=== PATIENT | female | born 1990 | race Caucasian/White ===

== ENCOUNTER 2021-06-14 18:17 | Emergency (ER) | payer OTHER, SELFPAY ==
[2021-06-14 19:16] VITALS: BP 176/104; PULSE 114; RESP 20; TEMP 36.4; O2SAT 99
[2021-06-14 19:32] LABS: Basophils Percent Auto 0.2 % (0.2-1.2); Eosinophils Percent Auto 0.3 % (0-4.4); Hematocrit 40.9 % (37.0-47.0); Hemoglobin 13.8 g/dL (12.0-15.0); Immature Granulocyte Absolute 0.04 K/mm3 (0.00-0.031); Immature Granulocyte Percent A 0.4 % (0-0.5); Lymphocytes Absolute Auto 1.21 K/mm3 (0.9-3.2); Lymphocytes Percent Auto 11.5 % (18.3-44.2); Mean Corpuscular HGB Conc 33.7 g/dl (32-36); Mean Corpuscular Hemoglobin 30.1 pg (26-34); Mean Corpuscular Volume 89.3 fl (80-100); Mean Platelet Volume 9.5 fl (7.4-10.4); Monocytes Absolute Auto 0.4 K/mm3 (0.1-0.6); Neutrophils Absolute Auto 8.8 K/mm3 (1.3-6.7); Neutrophils Percent Auto 83.6 % (45.5-73.1); Platelet Count Result 240 k/mm3 (150-375); Red Blood Count 4.58 M/mm3 (4.2-5.4); Red Cell Distribution Width 13.1 % (11.5-14.5); White Blood Count 10.5 K/mm3 (4.5-10.0)
[2021-06-14 19:42] LABS: Alanine Aminotransferase 24 U/L (4-35); Albumin Level 3.9 g/dL (3.5-5.1); Alkaline Phosphatase 63 U/L (38-126); Anion Gap 10 mmol/L (8-16); Aspartate Amino Transferase 21 U/L (14-36); Bilirubin,Total 0.3 mg/dL (0.2-1.3); Blood Urea Nitrogen 9 mg/dL (7-17); Calcium 9.7 mg/dL (8.4-10.2); Carbon Dioxide 20 mmol/L (22-30); Chloride 107 mmol/L (98-107); Estimated CRCL calculation 212 ml/min; Estimated Glomerular Filt Rate > 60; Glucose 115 mg/dL (65-110); Lipase 38 U/L (23-300); Sodium 137 mmol/L (137-145)
[2021-06-14 20:19] LABS: Add Urine Microscopic? YES; Appearance Urine Clear (Clear); Bilirubin Urine Negative (Negative); Blood Urine Negative (Negative); Color Urine Yellow (Yellow); Glucose Urine UA Negative (Negative); Ketones Urine 1+ mg/dL (Negative); Leukocyte Esterase Ur Negative LEU/UL (Negative); Mucus Urine Few /lpf; Nitrate Urine Negative (Negative); Protein Urine 1+ mg/dL (Negative); RBC Urine 0-2 /hpf (0-2); Specific Grav Ur 1.028 (1.001-1.035); Squamous Epithelial Cell Urine Few /hpf (Few); WBC Urine 0-3 /hpf
[2021-06-14] MEDS: ACETAMINOPHEN 500 MG TABLET 1000 MG PO (21:39)
[2021-06-14 21:44] VITALS: BP 141/94; PULSE 95; RESP 18; O2SAT 97
[2021-06-14] MEDS: DICYCLOMINE HCL INJ 20 MG/2 ML VIAL IM (22:06)
--- NOTE | 2021-06-14 22:07 | ED.ABDPAIN ---
HPI - Abdominal Pain General Chief Complaint: Abdominal Pain Stated Complaint: Stomach hurts after starting metformin, 10wks preg Time Seen by Provider: 06/14/21 19:53 History of Present Illness HPI narrative: Patient is a 31-year-old female who presents to the ER with abdominal cramping. Recently started Metformin and insulin for diabetes. She is currently 9 weeks . She is seeing the high risk clinic due to her diabetes. She has no vaginal bleeding or leakage of fluid. No urinary frequency urgency or dysuria. Has not had similar symptoms previously. She has had an ultrasound for documentation of IUP. Related Data Home Medications Medication Instructions Recorded Confirmed insulin NPH isoph U-100 human unit SUBCUT 06/14/21 [Humulin N NPH Insulin KwikPen] metformin mg PO 06/14/21 Allergies Allergy/AdvReac Type Severity Reaction Status Date / Time Sulfa (Sulfonamide AdvReac Hives Verified 06/14/21 19:51 Antibiotics) Review of Systems Review of Systems: All systems reviewed & are unremarkable except as noted in HPI and below Constitutional: Constitutional: Denies chills, Denies fever(s) and Denies weakness ENT: Denies nasal congestion and Denies sore throat Gastrointestinal: Gastrointestinal: Reports abdominal pain, Denies diarrhea, Denies nausea and Denies vomiting Genitourinary: Genitourinary: Denies abnormal vaginal bleeding, Denies hematuria, Denies flank pain and Denies vaginal discharge Musculoskeletal: Musculoskeletal: Denies back pain and Denies muscle cramps PMFSH Past Medical History Medical History (Updated 06/14/21 @ 22:11 by Madhu Bryant MD) Anxiety Diabetes Surgical History Surgical History (Updated 06/14/21 @ 22:08 by Madhu Bryant MD) No pertinent past surgical history Exam Narrative: GENERAL: Well-appearing, well-nourished, and in no acute distress. HEAD: Normocephalic, atraumatic. EYES: PERRL and EOMI. CHEST: Clear to auscultation. No respiratory distress. HEART: Regular rate and rhythm. Normal peripheral pulses. ABDOMEN: Soft, nontender, nondistended. EXTREMITIES: Normal range of motion. No edema. SKIN: Warm, dry, no rash. NEURO: Alert and oriented x3. PSYCH: Normal mood and affect. Course Course Emergency Course: Patient resting comfortably. Informed results. Discharge home. Vital Signs Vital signs: Vital Signs Temperature 97.6 F 06/14/21 19:16 Pulse Rate 114 H 06/14/21 19:16 Respiratory Rate 20 06/14/21 19:16 Blood Pressure 176/104 H 06/14/21 19:16 Pulse Oximetry 99 06/14/21 19:16 Temperature 97.6 F 06/14/21 19:16 Pulse Rate 95 06/14/21 21:44 Respiratory Rate 18 06/14/21 21:44 Blood Pressure 141/94 H 06/14/21 21:44 Pulse Oximetry 97 06/14/21 21:44 MDM - Abdominal Pain Lab Data Result diagrams: 06/14/21 19:26 06/14/21 19:26 Labs: Lab Results 06/14/21 06/14/21 06/14/21 Range/Units 19:25 19:26 19:26 WBC 10.5 H (4.5-10.0) K/mm3 RBC 4.58 (4.2-5.4) M/mm3 Hgb 13.8 (12.0-15.0) g/dL Hct 40.9 (37.0-47.0) % MCV 89.3 (80-100) fl MCH 30.1 (26-34) pg MCHC 33.7 (32-36) g/dl RDW 13.1 (11.5-14.5) % Plt Count 240 (150-375) k/mm3 MPV 9.5 (7.4-10.4) fl Immature Gran % (Auto) 0.4 (0-0.5) % Neut % (Auto) 83.6 H (45.5-73.1) % Lymph % (Auto) 11.5 L (18.3-44.2) % [place] % (Auto) 4.0 (2.6-8.5) % Eos % (Auto) 0.3 (0-4.4) % Baso % (Auto) 0.2 (0.2-1.2) % Lymph # (Auto) 1.21 (0.9-3.2) K/mm3 [place] # (Auto) 0.4 (0.1-0.6) K/mm3 Eos # (Auto) 0.0 (0-0.3) K/mm3 Baso # (Auto) 0.0 (0.0-0.1) K/mm3 Abs Immat Gran (auto) 0.04 H (0.00-0.031) K/mm3 Absolute Neuts (auto) 8.8 H (1.3-6.7) K/mm3 Absolute Nucleated RBC 0.0 (0.0-0.012) K/mm3 Nucleated RBC % 0.0 (0.0-0.2) % Sodium 137 (137-145) mmol/L Potassium 4.0 (3.4-5.0) mmol/L Chloride 107 (98-107) mmol/L Carbon D
[2021-06-14 22:26] VITALS: BP 154/85; PULSE 98; RESP 18; O2SAT 98
== END 2021-06-14 22:23 | disposition home or self-care (01) ==
PROVIDERS: Emergency Medicine; Emergency Provider Emergency Medicine; PCP Obstetrics & Gynecology
DX: O26.891 Other specified pregnancy related conditions, first trimester (principal); R14.0 Abdominal distension (gaseous); R10.9 Unspecified abdominal pain; O24.911 Unspecified diabetes mellitus in pregnancy, first trimester; Z79.4 Long term (current) use of insulin; Z3A.09 9 weeks gestation of pregnancy
CPT/HCPCS: 36415; 80053; 81001; 81025; 83690; 84702; 85025; 96372; 99283; A9270; J0500

== ENCOUNTER 2022-01-02 09:13 | Outpatient (RCR) | payer OTHER, SELFPAY ==
[2021-11-28 10:32] VITALS: BP 137/75; PULSE 97
[2021-12-05 09:51] VITALS: BP 139/80; PULSE 101
[2021-12-09 11:37] VITALS: BP 148/83; PULSE 100
[2021-12-12 10:00] VITALS: BP 132/72; PULSE 109
[2021-12-21 13:13] VITALS: BP 141/93; PULSE 110
[2021-12-26 09:48] VITALS: BP 129/73; PULSE 104
[2021-12-30 12:29] VITALS: BP 139/80; PULSE 101
--- NOTE | ~2022-01-02 | US_ITS ---
EXAMINATION: US OB follow up w [facility] DATE: 11/28/2021 11:53 INDICATION: Gestational diabetes. Evaluate growth. TECHNIQUE: Real-time ultrasound of the pelvis was performed. The interpreting radiologist was not pre sent for the study. COMPARISON: None. FINDINGS: There is a single living fetus in breech presentation. The placenta is anterior/fundal. cardia c activity and movement are noted. heart rate is 163 beats per minute (bpm). The amniotic fluid index is 11.2 cm, which is normal. The following biometric data were obtained: BPD: 80 cm corresponds to gestational age 32 weeks 0 day(s). Head circumference: 302 cm corresponds to gestational age 33 weeks 4 day(s). Abdominal circumference: 337 cm corresponds to gestational age 36 weeks 4 day(s). Femur length: 65 cm corresponds to gestational age 33 weeks 3 day(s). Head circumference to abdominal circumference ratio: 0.93, normal for gestational age is 0.95-1.11 Estimated weight: 2547 g plus or minus 382 g, 95.2 percentile by Hadlock method. Biophysical profile performed by the technologist: breathing (30 sec sustained breathing in 30 minutes): 2 out of 2 movement (3 gross body movements in 30 minutes: 2 out of 2 tone (one episode of cblyytz-qgivcvzpi-lidnvuy limb movement): 2 out of 2 Amniotic fluid pocket (2 cm): 2 out of 2 Total score: 8 out of 8 IMPRESSION: 1. Single living fetus in breech presentation with heart rate of 163 bpm. 2. Normal placenta. 3. Biophysical profile 8 out of 8. 4. Gestational age by ultrasound of 33 weeks 6 day(s) with ultrasound estimated date of delivery (SARAH ) of 01/10/2022. Please correlate with clinical information or other ultrasounds for most accurate SARAH . Reviewed, dictated and finalized at location A. [facility] IMPRESSION: 1. Single living fetus in breech presentation with heart rate of 163 bpm. 2. Normal placenta. 3. Biophysical profile 8 out of 8. 4. Gestational age by ultrasound of 33 weeks 6 day(s) with ultrasound estimated date of delivery (SARAH) of 01/10/2022. Please correlate with clinical informatio n or other ultrasounds for most accurate SARAH.
[2022-01-02 09:53] VITALS: BP 136/87; PULSE 98
== END 2022-01-26 10:45 | disposition home or self-care (01) ==
LOC: ANHOBOP 09:13
PROVIDERS: PCP Obstetrics & Gynecology; Visit Provider Obstetrics & Gynecology
DX: O24.419 Gestational diabetes mellitus in pregnancy, unspecified control (principal); O26.893 Other specified pregnancy related conditions, third trimester; R03.0 Elevated blood-pressure reading, without diagnosis of hypertension; Z3A.32 32 weeks gestation of pregnancy; Z3A.33 33 weeks gestation of pregnancy; O16.3 Unspecified maternal hypertension, third trimester; Z3A.34 34 weeks gestation of pregnancy; Z3A.36 36 weeks gestation of pregnancy; Z3A.37 37 weeks gestation of pregnancy
CPT/HCPCS: 59025; 76816; 76819

== ENCOUNTER 2022-01-06 10:04 | Inpatient (IN) | payer OTHER, SELFPAY ==
[2022-01-06] VITALS (73 sets, daily range): BP systolic 89–162; BP diastolic 46–107; PULSE 70–108; RESP 18–22; TEMP 36.8–37.4; O2SAT 96–100; BMI 49.3
--- OUTSIDE RECORDS SUMMARY | 2022-01-06 10:17 | XMS_ITS ---
:1990 Author Care Team Providers Name Role Phone LEVI KENNEDY MD English Teacher [phone] Allergies Code Code System Name Reaction Severity Status Onset Sulfa Hives Mild to Active ? (Sulfonamid Moderate e Antibiotics ) Medications Name Status Start Date Stop Date ? ? acetaminophen 300 mg-codeine 30 mg tablet Completed ? 03/31/2021 amoxicillin 500 mg capsule Completed ? 03/31 amoxicillin 875 mg-potassium clavulanate Completed ? 03/31/2021 125 mg tablet aspirin 81 mg tablet,delayed release Completed ? 01/10/2018 azithromycin 250 mg tablet Completed ? 03/31 benzonatate 100 mg capsule Completed ? 10/11 lkkboraepn-dplrtnuuxhfoe-gyscccry 50 Completed ? 03/31/2021 mg-325 mg-40 mg tablet Calcium 600 with Vitamin D3 600 mg-10 mcg (400 unit) capsule Com pleted ? 01/10/2018 Take 1 capsule twice a day by oral route. calcium carbonate 600 mg-vitamin D3 20 mcg (800 unit) tablet Com pleted ? 03/31/2021 Take 1 tablet twice a day by oral route. cephalexin 500 mg capsule Completed ? 2016 cetirizine 10 mg tablet Completed ? 03/31/20 21 TK 1 T PO D cholecalciferol (vitamin D3) 10 mcg/mL Completed ? 03/31/2021 (400 unit/mL) oral drops cimetidine 800 mg tablet Completed ? 017 Take 1 tablet every day by oral route. ciprofloxacin 500 mg tablet Completed ?
--- NOTE | 2022-01-06 11:50 | LDADM ---
This patient, Paz Fernandez, was admitted to OB Post 116 on 01/06/22 at 10:04. Plans for surgery/ and, pain management were discussed with patient. Patient/family oriented to hospital policies and general routines including ID bracelet, bed and alarms, visiting hours, pain management, procedures, bathroom and other care routines, personal items, smoking policy, room service/diet and guest tray routines, infant security routines, and visiting hours. Patient/Family are encouraged to report perceived risks to care and to ask questions if they do not understand what they are told or what they should do. See OBIX for further documentation.
--- NOTE | 2022-01-06 12:06 | PM.IMHP ---
H&P: HPI History of Present Illness Date/Time: 01/06/22 12:06 Paz is a 32yo @ 38.2wks (SARAH 01/18/22) who presented to L&D from [facility] clinic. She was found to be severely hypertensive and had been having LO, vision changes randomly over the weekend; none now. [facility] recommended delivery. She has had regular care with [facility] and [facility]. Her has been complicated by: - Morbid obesity; BMI 49 - H/o prior section x2 - Undesired future fertility; for BTL - CHTN with concerns for superimposed pre-eclampsia - Uncontrolled A2GDM on insulin, LGA fetus-- does not take insulin - GBS positive Chief Complaint: elevated blood pressure Review of Systems Review of Systems: All systems reviewed & are unremarkable except as noted in HPI and below (HPI) [facility] Past Medical History Medical History Anxiety Diabetes Hypertension affecting Surgical History Surgical History Delivery by section (09/06/11) primary c/s HTN distress Delivery by section (12/21/17) rpt c/s No pertinent past surgical history Family History Family History Mother Hypertension Cerebrovascular accident Diabetes mellitus Mental disorder Sibling Diabetes mellitus Grandparent Diabetes mellitus maternal grand mother Social History Social History Smoking status: Never smoker Second hand tobacco smoke exposure: Yes Alcohol intake: never Substance use: never Substance use type: does not use 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 [employer] Gender identity (if verbalized by the patient): Female Sexual Orientation (if Verbalized by the Patient): Straight or Heterosexual Spiritual care concerns: No Meds Home Medications and Allergies Home Medications Medication Instructions Recorded Confirmed Type aspirin 81 mg tablet,delayed 81 mg PO BID tablet 11/30/21 01/06/22 History release folic acid 1 mg tablet 1 mg PO DAILY 11/30/21 01/06/22 History insulin lispro 100 unit/mL 1 sliding scale dose SUBCUT 11/30/21 01/06/22 History subcutaneous pen USEASDIRECTD vitamins-iron fumarate 65 1 tablet PO DAILY 11/30/21 01/06/22 History mg iron-folic acid 1 mg tablet pyridoxine (vitamin B6) 25 mg 25 mg PO DAILY 11/30/21 01/06/22 History tablet docusate sodium 50 mg PO DAILY 01/01/22 01/06/22 History famotidine 20 mg PO DAILY 01/01/22 01/06/22 History ondansetron 4 mg PO Q6H PRN 01/01/22 01/06/22 History insulin detemir U-100 [Levemir 60 unit SUBCUT QACBREAK 01/06/22 01/06/22 History FlexTouch U-100 Insuln] insulin detemir U-100 [Levemir 90 unit SUBCUT HS 01/06/22 01/06/22 History FlexTouch U-100 Insuln] Allergies Allergy/AdvReac Type Severity Reaction Status Date / Time Sulfa (Sulfonamide AdvReac Hives Verified 12/25/21 09:47 Antibiotics) Vital Signs Vital Signs - 24 hr 01/06/22 10:44 01/06/22 11:01 01/06/22 11:16 Pulse Rate 97 102 H 102 H Blood Pressure 137/87 144/82 H 119/88 01/06/22 11:31 Pulse Rate 99 Blood Pressure 130/83 Exam Const: General: cooperative, comfortable and no acute distress Nutritional Appearance: obese morbidly obese Resp: Effort & Inspection: normal respiratory effort Cardio: Rate: regular rate GI: GI Palp: No abdominal tenderness and Yes Soft to palpation : Other: FHT's: 150's/mod quentin/ + accels/ occasional late + prolonged + variable decels- cat 2 TOCO: irregular ctx's Presentation: cephalic Membranes: intact Skin: General skin exam: normal color Neuro: General: patient oriented x3 Extrem: General: normal to inspection Psych: Appearance: grossly normal Affect: normal affect Attitude: cooperative Assessment and Plan Assessment and plan (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
[2022-01-06] MEDS: LACTATED RINGERS 1,000 ML 125 ML IV CONT ×2 (12:14→13:36)
[2022-01-06 12:16] LABS: Basophils Percent Auto 0.4 % (0.2-1.2); Eosinophils Percent Auto 0.5 % (0-4.4); Hematocrit 37.9 % (37.0-47.0); Hemoglobin 12.3 g/dL (12.0-15.0); Immature Granulocyte Absolute 0.02 K/mm3 (0.00-0.031); Immature Granulocyte Percent A 0.2 % (0-0.5); Lymphocytes Absolute Auto 1.47 K/mm3 (0.9-3.2); Lymphocytes Percent Auto 17.6 % (18.3-44.2); Mean Corpuscular HGB Conc 32.5 g/dl (32-36); Mean Corpuscular Hemoglobin 27.9 pg (26-34); Mean Corpuscular Volume 85.9 fl (80-100); Mean Platelet Volume 10.4 fl (7.4-10.4); Monocytes Absolute Auto 0.5 K/mm3 (0.1-0.6); Monocytes Percent Auto 5.5 % (2.6-8.5); Neutrophils Absolute Auto 6.3 K/mm3 (1.3-6.7); Neutrophils Percent Auto 75.8 % (45.5-73.1); Platelet Count Result 255 k/mm3 (150-375); Red Blood Count 4.41 M/mm3 (4.2-5.4); Red Cell Distribution Width 14.6 % (11.5-14.5); White Blood Count 8.4 K/mm3 (4.5-10.0)
[2022-01-06 12:38] LABS: Alanine Aminotransferase 15 U/L (4-35); Albumin Level 3.5 g/dL (3.5-5.1); Alkaline Phosphatase 202 U/L (38-126); Anion Gap 9 mmol/L (8-16); Aspartate Amino Transferase 20 U/L (14-36); Bilirubin,Total 0.4 mg/dL (0.2-1.3); Blood Urea Nitrogen 7 mg/dL (7-17); Calcium 8.3 mg/dL (8.4-10.2); Carbon Dioxide 19 mmol/L (22-30); Chloride 109 mmol/L (98-107); Estimated CRCL calculation 328 ml/min; Estimated Glomerular Filt Rate > 60; Glucose 85 mg/dL (65-110); Potassium 3.6 mmol/L (3.4-5.0); Sodium 137 mmol/L (137-145); Uric Acid 3.7 mg/dL (2.5-7.5)
[2022-01-06 13:02] LABS: Creatinine Urine 10.4 mg/dL; Total Protein Urine Random 8 mg/dL; Ur Ttl Prot Creatinine Ratio 0.77 mg/mg (0-0.20)
[2022-01-06 13:17] LABS: HIV 1/2 Ab P24 Ag Result Negative (Negative)
--- NOTE | 2022-01-06 13:35 | WPDANESEPPF ---
Anes - Initial Pre Proc Eval Procedure: Operation Date: 01/06/22 13:30 Proposed Procedures p Repeat Section withTubal Ligation - Brianna Lemos MD Date/Time: 01/06/22 13:35 Surgeon: Brianna Lemos MD Pre Op Diagnosis: c/s Patient Data Age: 32 Gender: F Height: 1.75 m Weight: 151.6 kg Last Vital Signs Pulse 98 01/06/22 13:31 BP 141/93 H 01/06/22 13:31 Allergies Allergy/AdvReac Type Severity Reaction Status Date / Time Sulfa (Sulfonamide AdvReac Hives Verified 12/25/21 09:47 Antibiotics) Home Medications Medication Instructions Recorded Confirmed Type aspirin 81 mg tablet,delayed 81 mg PO BID tablet 11/30/21 01/06/22 History release folic acid 1 mg tablet 1 mg PO DAILY 11/30/21 01/06/22 History insulin lispro 100 unit/mL 1 sliding scale dose SUBCUT 11/30/21 01/06/22 History subcutaneous pen USEASDIRECTD vitamins-iron fumarate 65 1 tablet PO DAILY 11/30/21 01/06/22 History mg iron-folic acid 1 mg tablet pyridoxine (vitamin B6) 25 mg 25 mg PO DAILY 11/30/21 01/06/22 History tablet docusate sodium 50 mg PO DAILY 01/01/22 01/06/22 History famotidine 20 mg PO DAILY 01/01/22 01/06/22 History ondansetron 4 mg PO Q6H PRN 01/01/22 01/06/22 History insulin detemir U-100 [Levemir 60 unit SUBCUT QACBREAK 01/06/22 01/06/22 History FlexTouch U-100 Insuln] insulin detemir U-100 [Levemir 90 unit SUBCUT HS 01/06/22 01/06/22 History FlexTouch U-100 Insuln] Laboratory Tests 01/06/22 01/06/22 01/06/22 12:03 12:03 12:03 WBC 8.4 K/mm3 K/mm3 (4.5-10.0) RBC 4.41 M/mm3 M/mm3 (4.2-5.4) Hgb 12.3 g/dL g/dL (12.0-15.0) Hct 37.9 % % (37.0-47.0) MCV 85.9 fl fl (80-100) MCH 27.9 pg pg (26-34) MCHC 32.5 g/dl g/dl (32-36) RDW 14.6 % H % (11.5-14.5) Plt Count 255 k/mm3 k/mm3 (150-375) MPV 10.4 fl fl (7.4-10.4) Immature Gran % (Auto) 0.2 % % (0-0.5) Neut % (Auto) 75.8 % H % (45.5-73.1) Lymph % (Auto) 17.6 % L % (18.3-44.2) Carbon % (Auto) 5.5 % % (2.6-8.5) Eos % (Auto) 0.5 % % (0-4.4) Baso % (Auto) 0.4 % % (0.2-1.2) Lymph # (Auto) 1.47 K/mm3 K/mm3 (0.9-3.2) Carbon # (Auto) 0.5 K/mm3 K/mm3 (0.1-0.6) Eos # (Auto) 0.0 K/mm3 K/mm3 (0-0.3) Baso # (Auto) 0.0 K/mm3 K/mm3 (0.0-0.1) Abs Immat Gran (auto) 0.02 K/mm3 K/mm3 (0.00-0.031) Absolute Neuts (auto) 6.3 K/mm3 K/mm3 (1.3-6.7) Absolute Nucleated RBC 0.0 K/mm3 K/mm3 (0.0-0.012) Nucleated RBC % 0.0 % % (0.0-0.2) Sodium Potassium Chloride Carbon Dioxide Anion Gap BUN Creatinine Estim Creat Clear Calc Estimated GFR Glucose Uric Acid Calcium Total Bilirubin AST ALT Alkaline Phosphatase Total Protein Albumin U Random Total Protein Urine Creatinine Protein/Creat Ratio 2 RPR Pending HIV 1&2 Ab/P24 Ag 4thGn Blood Type A Positive Antibody Screen Negative 01/06/22 01/06/22 01/06/22 12:03 12:03 12:03 WBC RBC Hgb Hct MCV MCH MCHC RDW Plt Count MPV Immature Gran % (Auto) Neut % (Auto) Lymph % (Auto) Carbon % (Auto) Eos % (Auto) Baso % (Auto) Lymph # (Auto) Carbon # (Auto) Eos # (Auto) Baso # (Auto) Abs Immat Gran (auto) Absolute Neuts (auto) Absolute Nucleated RBC Nucleated
--- NOTE | 2022-01-06 13:38 | PC.NURSE ---
Dr. Lemos in to see pt before we take her back to OR.
--- NOTE | 2022-01-06 13:54 | WPDHPUPDATE1 ---
History and Physical Update Update Date/Time: 01/06/22 13:54 History and Physical has been reviewed, including an updated exam of the patient. There are NO changes in the patient's condition. Risks, benefits, and alternatives have been discussed and questions answered. Patient agrees to proceed with procedure.
[2022-01-06] MEDS: ceFAZolin 3 GM/D5W 100 ML 100 ML IVPB (14:00)
[2022-01-06 14:54] LABS: Rapid Plasma Reagin Non-Reactive (NonReactive)
--- NOTE | 2022-01-06 16:23 | PM.OBPRVD ---
OB - Delivery Note Procedure Delivery date: 01/06/22 Procedure: Procedures Operation Date: 01/06/22 13:30 Actual Procedure Side Surgeon p Repeat Section withTubal Ligation Bilateral Brianna Lemos MD Events: Chronic Hypertension, Gestational Diabetes, Macrosomia, Positive Group B Strep (GBS), Preeclampsia w severe features, Previous Delivery and Other (Undesired future fertility; morbid obesity) Delivery monitor: External FHT Route of delivery: (and bilateral tubal ligation) Specimen: Yes (placenta) Quantitative Blood Loss (ml): 505 Anesthesia type: Spinal Disposition: floor Baby Date of : 01/06/22 Time of : 15:13 Weeks of gestation at delivery: 38 (.2) gender: Female Weight (pounds): 9 Weight (ounces): 7 presentation: vertex position: Left Occiput Posterior Placenta delivery description: Expressed Cord Vessel Description: 3 Vessels, Nuchal Cord, Loose and Reduced score one minute: 8 score five minutes: 9 Narrative: She was counseled on all risks and benefits in detail. She was taken to the operating room where spinal was placed. She was then prepped and draped in the normal sterile fashion; using a traxi device. She received 3g Ancef and a time out was performed. A Pfannenstiel incision was made in the skin and carried down to the underlying fascia. The fascia was nicked on either side of the midline and the fascial incision was extended laterally and superiorly. The fascia was then elevated and the underlying rectus muscles were dissected off the fascia, superiorly and inferiorly. The rectus muscles were noted to be have thick scar tissue completely encasing the rectus muscles and distorting the normal anatomy. Careful attention was made to avoid bladder injury when in the midline and the peritoneum was entered sharply. On entry, omentum was noted to be adhered to the anterior abdominal wall and the bladder. Those adhesions were carefully taken down and the omentum was doubly ligated using 0 Vicryl ties; good hemostasis was noted. Once adequate exposure was obtained, retractors were placed within the abdomen. A bladder flap was created. A low transverse incision was made on the lower uterine segment and thick meconium was noted. The occiput was brought to the hysterotomy and the head was delivered using a Kiwi Vacuum; one pull, no pop offs. A nuchal cord was noted and reduced. The shoulders and body then followed without complications. The mouth and nose were bulb suctioned and the infant had spontaneous cry. The cord was clamped and cut and the infant was handed off to the awaiting pediatric nurse. A segment of the cord was collected for cord gases. The remaining cord blood was collected for typing. With pitocin infusing, the placenta delivered with gentle traction on the cord without complications. The uterus was then cleared out of all clots and debris using a clean, moist lap. The hysterotomy was then repaired in a running, interlocking fashion using 0 Vicryl. The bilateral adnexa were examined and found to be normal. The left fallopian tube was elevated using a [place]. The tube was doubly ligated using 0 Catgut. A 3cm segment of the tube was then removed. The fallopian tube was then cauterized using the bovie and good hemostasis was noted. The same procedure was performed on the right side without issue. The hysterotomy was examined and small areas of oozing were noted; therefore a second layer imbricating suture was then made using 0 Vicryl. The hysterotomy was then found to be hemostatic and good uterine tone was noted. The pelvis was cleared of all clots and fluid. The retractors were removed from the abdomen. The peritoneum, muscle, and fascia were examined and made hemostatic with bovie cautery. The fascia was then reapproximated using a 0 Vicryl suture in a running fashion. The subcutaneous tissue was then irrigated and made h
[2022-01-06] MEDS: OXYTOCIN 30 UNITS/NS 500 ML 30 UNITS/500 ML BAG 125 UNITS IV CONT (16:49)
--- NOTE | 2022-01-06 19:03 | OBPPTRN ---
Patient transferred to post room #290 via stretcher. Support person present. Oriented to unit, room, information board, rooming in, admission packet and security measures. Patient verbalizes understanding.
[2022-01-06] MEDS: DEXTROSE 5%/0.45% SOD CHL 1,000 ML 125 ML IV CONT (21:35)
[2022-01-07] VITALS (7 sets, daily range): BP systolic 124–146; BP diastolic 72–85; PULSE 88–100; RESP 16–20; TEMP 36.6–37.3; O2SAT 98–100
[2022-01-07] MEDS: KETOROLAC 30 MG/ML VIAL (*BKC) IV PUSH (01:13)
[2022-01-07 01:19] LABS: Glucose Point of Care 119 mg/dl (65-105)
[2022-01-07] MEDS: HYDROcodone/acetaminophen (*CRX) 10-325 MG TABLET 1 TAB PO (04:24)
[2022-01-07 05:42] LABS: Basophils Percent Auto 0.3 % (0.2-1.2); Eosinophils Percent Auto 0.3 % (0-4.4); Hematocrit 31.3 % (37.0-47.0); Hemoglobin 10.1 g/dL (12.0-15.0); Immature Granulocyte Absolute 0.02 K/mm3 (0.00-0.031); Immature Granulocyte Percent A 0.3 % (0-0.5); Lymphocytes Absolute Auto 1.31 K/mm3 (0.9-3.2); Lymphocytes Percent Auto 17.1 % (18.3-44.2); Mean Corpuscular HGB Conc 32.3 g/dl (32-36); Mean Corpuscular Hemoglobin 28.1 pg (26-34); Mean Corpuscular Volume 87.2 fl (80-100); Mean Platelet Volume 10.3 fl (7.4-10.4); Monocytes Absolute Auto 0.6 K/mm3 (0.1-0.6); Monocytes Percent Auto 7.7 % (2.6-8.5); Neutrophils Absolute Auto 5.7 K/mm3 (1.3-6.7); Neutrophils Percent Auto 74.3 % (45.5-73.1); Platelet Count Result 210 k/mm3 (150-375); Red Blood Count 3.59 M/mm3 (4.2-5.4); Red Cell Distribution Width 14.5 % (11.5-14.5); White Blood Count 7.7 K/mm3 (4.5-10.0)
--- NOTE | 2022-01-07 08:00 | PC.NURSE ---
PT introductions made and plan of care discussed per post op c section, pain management, bottle feeding, daily care activities. PT sole recipient of instructions and no barriers to learning identified. PT received such instructions per one to one discussion, mom baby care guide and demonstrations this shift. PT verbalized understanding of such care.
[2022-01-07 08:47] LABS: Glucose Point of Care 125 mg/dl (65-105)
[2022-01-07] MEDS: DOCUSATE SODIUM 100 MG CAPSULE PO ×2 (08:59→17:32)
[2022-01-07] MEDS: SIMETHICONE 80 MG TAB.CHEW PO ×3 (08:59→17:33)
[2022-01-07] MEDS: HYDROcodone/acetaminophen (*CRX) 5-325 MG TABLET 1 TAB PO ×5 (08:59→23:35)
[2022-01-07] MEDS: IBUPROFEN 600 MG TABLET PO ×3 (09:00→20:33)
--- NOTE | 2022-01-07 11:53 | WPDANLDPN2 ---
Anes-Prog Note L&D Date/Time: 01/07/22 11:53 Comfortable throughout: section Neuraxial method: spinal Epidural/Spinal procedure site: clean & non-tender Neuro status: Neuro function grossly intact. Cardiovascular status: normal Respiratory status: normal Airway patency: baseline Mental status: baseline Post-Op hydration status: normal Vital Signs: Last Vital Signs Temp 36.6 C 01/07/22 08:35 Pulse 100 01/07/22 08:35 Resp 20 01/07/22 08:35 BP 138/73 01/07/22 08:35 Pulse Ox 99 01/07/22 08:35 Pain score (VAS): 3 I/O: Intake & Output 01/06/22 01/07/22 01/07/22 23:59 07:59 15:59 Intake Total 751 382 7232 Output Total 729 277 3254 Balance -720 250 -525 Post-procedural complaints: none Patient feedback: Patient satisfied with anesthetic care.
--- NOTE | 2022-01-07 11:54 | WPDANLDNPN2 ---
Anes-Prog Note L&D-Neuraxial Date/Time: 01/07/22 11:54 Neuraxial medications: intrathecal PF morphine Opiod-related complaints: none Patient feedback: Patient satisfied with post-operative pain management.
--- NOTE | 2022-01-07 12:55 | P.PNOB_ITS ---
OB - PN: Subj Subjective Date/time seen: 01/07/22 12:53 Narrative: POD#1 Paz reports doing well today. Her bleeding is light. Her pain is controlled. She is tolerating regular diet, voiding, and ambulating without issues. She has not passed gas yet. She denies any issues with her incision, jaycee dressing is working well. She is bottle feeding. She would like to go home tomorrow. OB - PN: Obj Data Labs CBC & Chem 7: 01/07/22 04:31 01/06/22 12:03 Labs: Laboratory Results - last 24 hr 01/07/22 01/07/22 01/07/22 01:12 04:31 08:44 WBC 7.7 RBC 3.59 L Hgb 10.1 L Hct 31.3 L MCV 87.2 MCH 28.1 MCHC 32.3 RDW 14.5 Plt Count 210 MPV 10.3 Immature Gran % (Auto) 0.3 Neut % (Auto) 74.3 H Lymph % (Auto) 17.1 L [place] % (Auto) 7.7 Eos % (Auto) 0.3 Baso % (Auto) 0.3 Lymph # (Auto) 1.31 [place] # (Auto) 0.6 Eos # (Auto) 0.0 Baso # (Auto) 0.0 Abs Immat Gran (auto) 0.02 Absolute Neuts (auto) 5.7 Absolute Nucleated RBC 0.0 Nucleated RBC % 0.0 POC Capillary Glucose 119 H 125 H OB - PN A/P Assessment and Plan (1) S/P section: Code(s): Z98.891 - History of uterine scar from previous surgery Status: Acute (2) S/P tubal ligation: Code(s): Z98.51 - Tubal ligation status Status: Acute Plan day: 1 Plan: routine care Time Spent With Patient Time: Total time spent is greater than 50% in coordination of care (as documented) at patient's floor/unit and/or counseling patient: Review of Systems Constitutional: Constitutional: Denies chills, Denies fever(s) and Denies head ache(s) Eyes: Eyes: Denies change in vision ENT: Denies dizziness and Denies headache(s) Cardiovascular: Cardiovascular: Denies chest pain, Denies palpitations and Denies dyspnea Respiratory: Respiratory: Denies cough and Denies dyspnea Gastrointestinal: Gastrointestinal: Denies nausea and Denies vomiting Genitourinary: Comments: normal bleeding Neurologic: Denies dizziness and Denies headache(s) Endocrine: Endocrine: Denies palpitations Exam Const: General: cooperative, comfortable and no acute distress Orientation/consciousness: patient oriented x3 Resp: Effort & Inspection: normal respiratory effort Auscultation: clear to auscultation bilaterally Cardio: Rate: regular rate GI: Inspection: non-distended and incision (covered with clean dressing) GI Palp: Yes abdominal tenderness (appropriate) and Yes Soft to palpation Auscultation: normal bowel sounds : Other: fundus firm Skin: General skin exam: normal color Neuro: General: patient oriented x3 Extrem: General: normal to inspection Psych: Appearance: grossly normal Affect: normal affect Attitude: cooperative
[2022-01-07] MEDS: TETANUS,DIPHTHERIA,AC PERTUSSIS ADULT (0.5 ML) BOOSTRIX IM (17:34)
[2022-01-07 18:04] LABS: Glucose Point of Care 110 mg/dl (65-105)
[2022-01-08] MEDS: HYDROcodone/acetaminophen (*CRX) 5-325 MG TABLET 1 TAB PO ×3 (05:06→12:26)
[2022-01-08] MEDS: IBUPROFEN 600 MG TABLET PO ×2 (05:06→12:26)
--- NOTE | 2022-01-08 05:39 | PM.OBPNVD ---
OB - PN: Subj Subjective Date/time seen: 01/08/22 05:39 Narrative: POD#2 Paz reports doing well today. Her bleeding is light. Her pain is controlled. She is tolerating regular diet, voiding, and ambulating without issues. She is now passing gas. She denies any issues with her incision, jaycee dressing is working well. She is bottle feeding. She would like to go home today. OB - PN: Obj Data Labs CBC & Chem 7: 01/07/22 04:31 01/06/22 12:03 Labs: Laboratory Results - last 24 hr 01/07/22 01/07/22 01/07/22 04:31 08:44 18:01 WBC 7.7 RBC 3.59 L Hgb 10.1 L Hct 31.3 L MCV 87.2 MCH 28.1 MCHC 32.3 RDW 14.5 Plt Count 210 MPV 10.3 Immature Gran % (Auto) 0.3 Neut % (Auto) 74.3 H Lymph % (Auto) 17.1 L [place] % (Auto) 7.7 Eos % (Auto) 0.3 Baso % (Auto) 0.3 Lymph # (Auto) 1.31 [place] # (Auto) 0.6 Eos # (Auto) 0.0 Baso # (Auto) 0.0 Abs Immat Gran (auto) 0.02 Absolute Neuts (auto) 5.7 Absolute Nucleated RBC 0.0 Nucleated RBC % 0.0 POC Capillary Glucose 125 H 110 H OB - PN A/P Assessment and Plan (1) S/P tubal ligation: Code(s): Z98.51 - Tubal ligation status Status: Acute (2) S/P section: Code(s): Z98.891 - History of uterine scar from previous surgery Status: Acute Plan day: 2 Plan: discharge home Comments: - Pelvic rest; take meds as prescribed - Incision care/no heavy lifting - ER return precautions: fever, n/v/abd pain, bleeding, HTN Time Spent With Patient Time: Total time spent is greater than 50% in coordination of care (as documented) at patient's floor/unit and/or counseling patient: Review of Systems Constitutional: Constitutional: Denies chills, Denies fever(s) and Denies headache(s) Eyes: Eyes: Denies change in vision ENT: Denies dizziness and Denies headache(s) Cardiovascular: Cardiovascular: Denies chest pain, Denies palpitations and Denies dyspnea Respiratory: Respiratory: Denies cough and Denies dyspnea Gastrointestinal: Gastrointestinal: Denies nausea and Denies vomiting Genitourinary: Comments: normal bleeding Neurologic: Denies dizziness and Denies headache(s) Endocrine: Endocrine: Denies palpitations Exam Const: General: cooperative, comfortable and no acute distress Nutritional Appearance: obese Orientation/consciousness: patient oriented x3 Resp: Effort & Inspection: normal respiratory effort Auscultation: clear to auscultation bilaterally Cardio: Rate: regular rate GI: Inspection: non-distended and incision (covered with clean dressing) GI Palp: Yes abdominal tenderness (appropriate) and Yes Soft to palpation Auscultation: normal bowel sounds : Other: fundus firm Skin: General skin exam: normal color Neuro: General: patient oriented x3 Extrem: General: normal to inspection Psych: Appearance: grossly normal Affect: normal affect Attitude: cooperative
[2022-01-08] MEDS: DOCUSATE SODIUM 100 MG CAPSULE PO (08:50)
[2022-01-08 09:15] VITALS: BP 137/95; O2SAT 99
--- NOTE | 2022-01-08 12:01 | PC.NURSE ---
Patient instructed on viewing the discharge video Mother & Baby Care, The First Two Weeks . Patient was given the opportunity and encouraged to ask questions. Patient verbalized understanding of information shared and has been given the mother/baby guide for home reference.
--- NOTE | 2022-01-11 08:02 | PM.OBDSVD ---
DS: Admitting Diagnosis Discharge Date 01/08/22 Admitting Diagnosis elevated blood pressures heart decelerations DS: Discharge Diagnosis Discharge Diagnosis (1) S/P section: Code(s): Z98.891 - History of uterine scar from previous surgery Status: Acute (2) S/P tubal ligation: Code(s): Z98.51 - Tubal ligation status Status: Acute (3) Chronic hypertension affecting : Code(s): O10.919 - Unspecified pre-existing hypertension complicating , unspecified trimester Status: Acute (4) Gestational diabetes mellitus: Qualifiers: Gestational diabetes mellitus control: insulin-controlled Trimester: third trimester Qualified Code(s): O24.414 - Gestational diabetes mellitus in , insulin controlled Code(s): O24.419 - Gestational diabetes mellitus in , unspecified control Status: Acute OB - DS: Summary OB Procedures : NST, PIH Mgmt and Ultrasound OB Procedures Intrapartum: low cervical, transverse and Tubal ligation OB Procedures: : None Peripartum Data Infant Delivery Method: Section Procedures: Procedures Operation Date: 01/06/22 13:30 Actual Procedure Side Surgeon p Repeat Section withTubal Ligation Bilateral Brianna Lemos MD complications: none 1: Gender: Female Disposition of : home Status at Discharge Functional status at discharge: independent ambulation Overall status at discharge: patient is back to baseline Time Spent with Patient Time attestation: Total time spent providing and/or coordinating discharge services: Time spent: Less than 30 minutes Exam Const: General: cooperative, comfortable and no acute distress Nutritional Appearance: obese morbidly obese Orientation/consciousness: patient oriented x3 Resp: Effort & Inspection: normal respiratory effort Auscultation: clear to auscultation bilaterally Cardio: Rate: regular rate GI: Inspection: non-distended and incision (covered with clean jim dressing) GI Palp: No abdominal tenderness and Yes Soft to palpation Auscultation: normal bowel sounds : Other: fundus firm Skin: General skin exam: normal color Neuro: General: patient oriented x3 Extrem: General: normal to inspection Psych: Appearance: grossly normal Affect: normal affect Attitude: cooperative DS: Data Data Completed and Pending Pending studies at discharge: Pending at discharge 01/06/22 15:31 Surgical [PTH] Routine Surgical [PTH] Routine Discharge Plan Discharge Attending physician on discharge: Brianna Lemos Consulting providers: Canelo Wren Discharging Clinician: Brianna Lemos Anticipated Discharge Date/Time: 01/08/22 11:00 Patient Disposition: Home, Self-Care Activity: may shower, may drive after 2 weeks and pelvic rest Diet: as tolerated and regular Discharge Instructions: no heavy lifting >10lbs for 6 wks Follow up in clinic in 1 week for removal of JIM dressing and eliza Education: Mom and Baby Guide Given to: Mother Follow-Up: Call your delivering provider's office for an appointment to be seen in: 1 Week Mom and baby should come to the [facility] for the follow-up appointment. Appointment Date/Time: January 11, 2022 at 10:00 am What to expect at your follow-up visit: Physical Assessment Call [phone] if you are unable to keep your appointment time. BREAST CARE: * Wear a snug supportive bra. * For engorgement discomfort: Bottle Feeding: * May apply ice packs ABDOMINAL INCISION: (if applicable) * Allow incision to air dry * Do NOT use lotions for powders on your incision * When showering, allow soap and water to run over the incision, but do not wash incision EPISIOTOMY/PERINEAL CARE: * Until bleeding stops, use your caio bottle after urinating * Change yo
[2022-01-11 09:57] VITALS: BP 150/107; PULSE 96; RESP 20; TEMP 37.5; O2SAT 100
== END 2022-01-08 12:43 | disposition home or self-care (01) | DRG 540 ==
LOC: ANHOBPP 11:04 → ANHLDR 17:02 → ANHOB2 20:27
PROVIDERS: Admitting Provider Obstetrics & Gynecology; Visit Provider Obstetrics & Gynecology
PROC: 10D00Z1 Extraction of Products of Conception, Low, Open Approach (ICD-10-PCS; CPT 59514; principal; 2022-01-06 13:30)
DX: O11.4 Pre-existing hypertension with pre-eclampsia, complicating childbirth (principal); Z37.0 Single live birth; Z3A.38 38 weeks gestation of pregnancy; O24.424 Gestational diabetes mellitus in childbirth, insulin controlled; O34.211 Maternal care for low transverse scar from previous cesarean delivery; O99.214 Obesity complicating childbirth; E66.01 Morbid (severe) obesity due to excess calories; O99.824 Streptococcus B carrier state complicating childbirth; O36.8330 Maternal care for abnormalities of the fetal heart rate or rhythm, third trimester, not applicable or unspecified; Z30.2 Encounter for sterilization; O77.0 Labor and delivery complicated by meconium in amniotic fluid; O69.81X0 Labor and delivery complicated by cord around neck, without compression, not applicable or unspecified; O36.63X0 Maternal care for excessive fetal growth, third trimester, not applicable or unspecified
CPT/HCPCS: 36415; 80053; 82570; 82948; 84156; 84550; 85025; 86592; 86703; 86850; 86900; 86901; 88302; 88307; 90715; A9270; G0432; J0131; J0690; J1885; J2274; J2590; J7120; Q9968

== ENCOUNTER 2022-01-11 21:34 | Observation (INO) | payer OTHER, SELFPAY ==
[2022-01-11] VITALS (27 sets, daily range): BP systolic 147–176; BP diastolic 74–101; PULSE 86–107; RESP 18; TEMP 37.2–37.3; O2SAT 96–100
--- NOTE | 2022-01-11 21:59 | PM.IMHP ---
H&P: HPI History of Present Illness Date/Time: 01/11/22 21:59 Paz is a 32yo now [id number] s/p rLTCS + BTL @ 38.2wks on 01/06/22, POD#5 who re-presented to L&D with severe headache over her whole head; 05/23. She reports taking ibuprofen about 1 hour ago; has not taken any norco since ~11am. She was seen here for her outpatient f/u earlier today where her BPs were found to be in the mild range but she was asymptomatic; she was prescribed Nifedipine 30mg. She took it at about 3pm. She reports she has been having short, sharp CPs on and off this entire . She has also been having spots in her vision on and off. She denies SOB or RUQ pain. She reports her bleeding is light; normal bowel/bladder function. No issues with her incision/jim dressing. Pain w/ movement. No fever, chills, N/V. She is bottle feeding. Her has been complicated by: - Morbid obesity; BMI 49 - CHTN with concerns for superimposed pre-eclampsia - Uncontrolled A2GDM on insulin, LGA fetus-- does not take insulin - S/p rLTCS + BTL w/ extension adhesions - Concerns for incisional cellulitis Chief Complaint: severe headache Review of Systems Review of Systems: All systems reviewed & are unremarkable except as noted in HPI and below (HPI) [facility] Past Medical History Medical History (Updated 01/11/22 @ 22:20 by Brianna Lemos MD) Anxiety Diabetes Hypertension affecting Morbid obesity Surgical History Surgical History Delivery by section (09/06/11) primary c/s HTN distress Delivery by section (12/21/17) rpt c/s No pertinent past surgical history Family History Family History Mother Hypertension Cerebrovascular accident Diabetes mellitus Mental disorder Sibling Diabetes mellitus Grandparent Diabetes mellitus maternal grand mother Social History Social History Smoking status: Never smoker Second hand tobacco smoke exposure: Yes Alcohol intake: never Substance use: never Substance use type: does not use 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 Gender identity (if verbalized by the patient): Female Sexual Orientation (if Verbalized by the Patient): Straight or Heterosexual Spiritual care concerns: No Meds Home Medications and Allergies Home Medications Medication Instructions Recorded Confirmed Type acetaminophen [Mapap 650 mg PO Q6H PRN 10 Days #50 01/08/22 Rx (acetaminophen)] tablet docusate sodium 100 mg PO BID 30 Days #60 cap 01/08/22 Rx famotidine 20 mg PO DAILY 90 Days #90 tablet 01/08/22 01/06/22 Rx hydrocodone-acetaminophen 1 tablet PO Q3H PRN 3 Days #24 01/08/22 Rx tablet ibuprofen 600 mg PO Q6H PRN 10 Days #40 01/08/22 Rx tablet nifedipine 30 mg tablet,extended 30 mg PO DAILY #30 tablet 01/11/22 Rx release Allergies Allergy/AdvReac Type Severity Reaction Status Date / Time Sulfa (Sulfonamide AdvReac Hives Verified 12/25/21 09:47 Antibiotics) Vital Signs Vital Signs - 24 hr 01/11/22 21:46 01/11/22 21:47 01/11/22 21:52 Pulse Rate 107 H 105 H Blood Pressure 160/97 H Pulse Oximetry 99 100 01/11/22 21:57 Pulse Rate Blood Pressure Pulse Oximetry 99 Exam Const: General: cooperative, comfortable and no acute distress Nutritional Appearance: obese morbidly obese Resp: Effort & Inspection: normal respiratory effort Cardio: Rate: regular rate GI: Inspection: incision (covered with JIM dressing; erythema and induration above/below incision), Pannus present and other (foul odor when raising pannus) GI Palp: Yes abdominal tenderness (appropriate) and Yes Soft to palpation Skin: General skin exam: erythema (above/below jim ) Neuro: General: patient oriented x3 Psych: Appearance: grossly normal Affect: normal affect Attitude: co
[2022-01-11] MEDS: HYDROcodone/acetaminophen (*CRX) 10-325 MG TABLET 1 TAB PO (22:30)
[2022-01-11] MEDS: MAGNESIUM SULF 4 GM/WATER100ML 4 GM/100 ML BAG 200 GM (22:31)
[2022-01-11] MEDS: LACTATED RINGERS 1,000 ML 75 ML (22:32)
--- NOTE | 2022-01-11 22:35 | WPDHPUPDATE1 ---
History and Physical Update Update Date/Time: 01/11/22 22:35 History and Physical has been reviewed, including an updated exam of the patient. There are NO changes in the patient's condition. Risks, benefits, and alternatives have been discussed and questions answered. Patient agrees to proceed with procedure.
[2022-01-11] MEDS: CLINDAMYCIN HCL 150 MG CAP 450 MG PO (22:44)
[2022-01-11] MEDS: AMOXICILLIN/CLAVULANATE K 875-125 MG TAB 1 TABLET PO (22:44)
[2022-01-11 22:50] LABS: Basophils Percent Auto 0.5 % (0.2-1.2); Eosinophils Absolute Auto 0.2 K/mm3 (0-0.3); Eosinophils Percent Auto 2.9 % (0-4.4); Hematocrit 36.2 % (37.0-47.0); Hemoglobin 11.9 g/dL (12.0-15.0); Immature Granulocyte Absolute 0.02 K/mm3 (0.00-0.031); Immature Granulocyte Percent A 0.3 % (0-0.5); Lymphocytes Absolute Auto 1.08 K/mm3 (0.9-3.2); Lymphocytes Percent Auto 16.5 % (18.3-44.2); Mean Corpuscular HGB Conc 32.9 g/dl (32-36); Mean Corpuscular Volume 85.2 fl (80-100); Mean Platelet Volume 9.6 fl (7.4-10.4); Monocytes Absolute Auto 0.4 K/mm3 (0.1-0.6); Monocytes Percent Auto 6.3 % (2.6-8.5); Neutrophils Absolute Auto 4.8 K/mm3 (1.3-6.7); Neutrophils Percent Auto 73.5 % (45.5-73.1); Platelet Count Result 360 k/mm3 (150-375); Red Blood Count 4.25 M/mm3 (4.2-5.4); Red Cell Distribution Width 14.5 % (11.5-14.5); White Blood Count 6.6 K/mm3 (4.5-10.0)
[2022-01-11] MEDS: MAGNESIUM SULF 20GM/WATER500ML 500 ML 50 MG (23:14)
[2022-01-11 23:18] LABS: Alanine Aminotransferase 21 U/L (4-35); Albumin Level 3.6 g/dL (3.5-5.1); Alkaline Phosphatase 133 U/L (38-126); Anion Gap 9 mmol/L (8-16); Aspartate Amino Transferase 20 U/L (14-36); Bilirubin,Total 0.6 mg/dL (0.2-1.3); Blood Urea Nitrogen 11 mg/dL (7-17); Calcium 8.8 mg/dL (8.4-10.2); Carbon Dioxide 24 mmol/L (22-30); Chloride 106 mmol/L (98-107); Estimated Glomerular Filt Rate > 60; Glucose 121 mg/dL (65-110); Potassium 3.9 mmol/L (3.4-5.0); Sodium 139 mmol/L (137-145)
[2022-01-11] MEDS: LABETALOL HCL INJ 100 MG/20 ML VIAL 20 MG IV PUSH (23:30)
[2022-01-11] MEDS: LABETALOL HCL INJ 100 MG/20 ML VIAL 40 MG IV PUSH (23:50)
[2022-01-12] VITALS (290 sets, daily range): BP systolic 115–161; BP diastolic 47–103; PULSE 67–111; RESP 16–18; TEMP 36.6–37.3; O2SAT 92–100
[2022-01-12] MEDS: CLINDAMYCIN HCL 150 MG CAP 450 MG PO ×3 (06:21→18:35)
[2022-01-12] MEDS: HYDROcodone/acetaminophen (*CRX) 5-325 MG TABLET 1 TAB PO ×3 (06:37→15:28)
--- NOTE | 2022-01-12 08:20 | PM.OBPNVD ---
OB - PN: Subj Subjective Date/time seen: 01/12/22 08:20 Narrative: POD#6 Paz reports feeling better today. Her LO and chest pain are much improved. She is still on magnesium. She did receive Labetalol 20, 40mg overnight. She feels like her pelvic pain may also be slightly decreased since taking the antibiotics. Her bleeding is light. She is tolerating regular diet, voiding, passing gas, and ambulating without issues. OB - PN: Obj Data Labs CBC & Chem 7: 01/11/22 22:03 01/11/22 22:03 Labs: Laboratory Results - last 24 hr 01/11/22 01/11/22 22:03 22:03 WBC 6.6 RBC 4.25 Hgb 11.9 L Hct 36.2 L MCV 85.2 MCH 28.0 MCHC 32.9 RDW 14.5 Plt Count 360 D MPV 9.6 Immature Gran % (Auto) 0.3 Neut % (Auto) 73.5 H Lymph % (Auto) 16.5 L [place] % (Auto) 6.3 Eos % (Auto) 2.9 Baso % (Auto) 0.5 Lymph # (Auto) 1.08 [place] # (Auto) 0.4 Eos # (Auto) 0.2 Baso # (Auto) 0.0 Abs Immat Gran (auto) 0.02 Absolute Neuts (auto) 4.8 Absolute Nucleated RBC 0.0 Nucleated RBC % 0.0 Sodium 139 Potassium 3.9 Chloride 106 Carbon Dioxide 24 Anion Gap 9 BUN 11 Creatinine 0.50 L Estim Creat Clear Calc Not Reportable Estimated GFR > 60 Glucose 121 H Uric Acid 4.0 Calcium 8.8 Total Bilirubin 0.6 AST 20 ALT 21 Alkaline Phosphatase 133 H Total Protein 7.0 Albumin 3.6 OB - PN A/P Assessment and Plan (1) Pre-eclampsia superimposed on chronic hypertension: Code(s): O11.9 - Pre-existing hypertension with pre-eclampsia, unspecified trimester Status: Acute (2) Wound infection following section, : Code(s): O86.00 - Infection of obstetric surgical wound, unspecified Status: Acute Plan Comments: - Continue magnesium sulfate x 24 hours; to be discontinued around 2230 tonight - repeat labs in AM - nifedipine 30mg BID ordered, if any further IV anti-hypertensives needed, will then start labetalol PO - BP checks q2hrs - Pt symptoms improved; will continue to monitor closely - plan for possible d/c home 01/13/22 if BPs/symptoms stable off of the magnesium - JIM dressing removed; incision cleaned and ABD pads placed in skin folds-- will continue PO antibiotics x 5-7 days (clinda/augmentin) - plan for staple removal tomorrow and may place a Mepilex dressing on day of discharge - plan for 1 wk incision/BP check in clinic (scheduled 01/20/22 @ 1345) Time Spent With Patient Time: Total time spent is greater than 50% in coordination of care (as documented) at patient's floor/unit and/or counseling patient: Review of Systems Constitutional: Constitutional: Denies chills, Denies fever(s) and Denies headache(s) Eyes: Eyes: Denies change in vision ENT: Denies dizziness and Denies headache(s) Cardiovascular: Cardiovascular: Denies chest pain, Denies palpitations and Denies dyspnea Respiratory: Respiratory: Denies cough and Denies dyspnea Gastrointestinal: Gastrointestinal: Denies nausea and Denies vomiting Genitourinary: Comments: normal bleeding Neurologic: Denies dizziness and Denies headache(s) Endocrine: Endocrine: Denies palpitations Exam Const: General: cooperative, comfortable and no acute distress Orientation/consciousness: patient oriented x3 Resp: Effort & Inspection: normal respiratory effort Auscultation: clear to auscultation bilaterally Cardio: Rate: regular rate GI: Inspection: non-distended and incision (dressing removed/cleaned; mild erythema, improved from last night) GI Palp: Yes abdominal tenderness (appropriate) and Yes Soft to palpation Auscultation: normal bowel sounds : Other: fundus firm Skin: General skin exam: normal color Neuro: General: patient oriented x3 Extrem: General: normal to inspection Psych: Appearance: grossly normal Affect: normal affect Attitude: cooperative
[2022-01-12] MEDS: NIFEdipine 30 MG TAB.ER.24 60 MG PO (08:59)
[2022-01-12] MEDS: DOCUSATE SODIUM 100 MG CAPSULE PO ×2 (09:00→18:58)
[2022-01-12] MEDS: ENOXAPARIN 40 MG/0.4 ML SYRINGE SUB-Q (09:00)
[2022-01-12] MEDS: AMOXICILLIN/CLAVULANATE K 875-125 MG TAB 1 TABLET PO ×2 (09:01→21:21)
[2022-01-12] MEDS: MAGNESIUM SULF 20GM/WATER500ML 500 ML 50 MG IV CONT ×2 (09:55→20:39)
[2022-01-12] MEDS: LACTATED RINGERS 1,000 ML 75 ML (09:55)
[2022-01-12] MEDS: NIFEdipine 30 MG TAB.ER.24 PO (15:28)
--- NOTE | 2022-01-12 17:14 | PC.NURSE ---
BP taken at 1701 read 161/103, the blood pressure cuff was loose on the patient's right arm. BP cuff repositioned and BP taken at 1706 read 132/69.
[2022-01-13] VITALS (23 sets, daily range): BP systolic 113–159; BP diastolic 58–99; PULSE 84–107; RESP 16; TEMP 37.2–37.3; O2SAT 96–100; BMI 47.0
[2022-01-13] MEDS: CLINDAMYCIN HCL 150 MG CAP 450 MG PO ×4 (00:47→17:39)
[2022-01-13] MEDS: HYDROcodone/acetaminophen (*CRX) 5-325 MG TABLET 1 TAB PO (02:50)
[2022-01-13 06:59] LABS: Hematocrit 35.9 % (37.0-47.0); Hemoglobin 11.5 g/dL (12.0-15.0); Mean Corpuscular Hemoglobin 28.2 pg (26-34); Platelet Count Result 342 k/mm3 (150-375); Red Blood Count 4.08 M/mm3 (4.2-5.4); Red Cell Distribution Width 14.6 % (11.5-14.5); White Blood Count 5.9 K/mm3 (4.5-10.0)
[2022-01-13 07:11] LABS: Alanine Aminotransferase 16 U/L (4-35); Albumin Level 3.5 g/dL (3.5-5.1); Alkaline Phosphatase 117 U/L (38-126); Anion Gap 8 mmol/L (8-16); Aspartate Amino Transferase 19 U/L (14-36); Bilirubin,Total 0.4 mg/dL (0.2-1.3); Blood Urea Nitrogen 8 mg/dL (7-17); Carbon Dioxide 24 mmol/L (22-30); Chloride 108 mmol/L (98-107); Estimated Glomerular Filt Rate > 60; Glucose 105 mg/dL (65-110); Potassium 4.3 mmol/L (3.4-5.0); Sodium 140 mmol/L (137-145)
[2022-01-13] MEDS: NIFEdipine 30 MG TAB.ER.24 PO (08:07)
[2022-01-13] MEDS: POLYSACCHARIDE IRON COMPLEX 150 MG CAPSULE PO (09:10)
[2022-01-13] MEDS: AMOXICILLIN/CLAVULANATE K 875-125 MG TAB 1 TABLET PO (09:12)
[2022-01-13] MEDS: DOCUSATE SODIUM 100 MG CAPSULE PO (09:12)
[2022-01-13] MEDS: ENOXAPARIN 40 MG/0.4 ML SYRINGE SUB-Q (09:12)
--- NOTE | 2022-01-13 10:08 | PC.NURSE ---
Dr. Lemos updated on the increase in her last 2 BP's, gave the Procardia XL at 0800 today as her last dose was at 1525 yesterday. Also, pt keeps asking if the doctor is here yet; pt is eager to go home. Order received to add Labetalol 200 mg PO BID.
[2022-01-13] MEDS: LABETALOL HCL 100 MG TABLET 200 MG PO (10:34)
--- NOTE | 2022-01-13 12:12 | PC.NURSE ---
Dr. Lemos here and removed eliza from abdominal incision. 1/2 inch steristrips applied and Mepilex dressing applied.
--- NOTE | 2022-01-13 12:22 | PM.OBPNVD ---
OB - PN: Subj Subjective Date/time seen: 01/13/22 12:00 POD#7 Paz reports doing well today. She denies LO or CP. The magnesium was stopped last night and her BPs have been in the normal to mild range overnight. Today they have all been 150's and labetalol was added to her nifedipine. She reports her incision/pelvic pain is improved. Her bleeding is light. She is tolerating regular diet, voiding, passing gas, and ambulating without issues. OB - PN: Obj Data Labs CBC & Chem 7: 01/13/22 06:43 01/13/22 06:43 Labs: Laboratory Results - last 24 hr 01/13/22 01/13/22 06:43 06:43 WBC 5.9 RBC 4.08 L Hgb 11.5 L Hct 35.9 L MCV 88.0 MCH 28.2 MCHC 32.0 RDW 14.6 H Plt Count 342 MPV 9.0 Sodium 140 Potassium 4.3 Chloride 108 H Carbon Dioxide 24 Anion Gap 8 BUN 8 Creatinine 0.50 L Estim Creat Clear Calc Not Reportable Estimated GFR > 60 Glucose 105 Calcium 8.0 L Total Bilirubin 0.4 AST 19 ALT 16 Alkaline Phosphatase 117 Total Protein 7.0 Albumin 3.5 OB - PN A/P Assessment and Plan (1) Wound infection following section, : Code(s): O86.00 - Infection of obstetric surgical wound, unspecified Status: Acute (2) Pre-eclampsia superimposed on chronic hypertension: Code(s): O11.9 - Pre-existing hypertension with pre-eclampsia, unspecified trimester Status: Acute Plan day: 7 Plan: routine care and discharge home Comments: - S/p magnesium sulfate x 24 hours - Repeat labs normal - On nifedipine 30mg BID + labetalol 200mg BID - BP checks q2hrs -- stable off magnesium - Pt asymptomatic - Will continue PO antibiotics x 5 days (clindamycin/augmentin) - Christine removed and steristrips/Mepilex dressing placed - Discharge home today and pt scheduled for 1 wk incision/BP check in clinic (01/20/22 @ 7379) Time Spent With Patient Time: Total time spent is greater than 50% in coordination of care (as documented) at patient's floor/unit and/or counseling patient: Review of Systems Constitutional: Constitutional: Denies chills, Denies fever(s) and Denies headache(s) Eyes: Eyes: Denies change in vision ENT: Denies dizziness and Denies headache(s) Cardiovascular: Cardiovascular: Denies chest pain, Denies palpitations and Denies dyspnea Respiratory: Respiratory: Denies cough and Denies dyspnea Gastrointestinal: Gastrointestinal: Denies nausea and Denies vomiting Genitourinary: Comments: normal bleeding Neurologic: Denies dizziness and Denies headache(s) Endocrine: Endocrine: Denies palpitations Exam Const: General: cooperative, comfortable and no acute distress Nutritional Appearance: obese morbidly obese Orientation/consciousness: patient oriented x3 Resp: Effort & Inspection: normal respiratory effort Auscultation: clear to auscultation bilaterally Cardio: Rate: regular rate GI: Inspection: non-distended, incision (closed w/ steristrips;erythema resolved, small bruise on mons) and Pannus present GI Palp: Yes abdominal tenderness (appropriate) and Yes Soft to palpation Auscultation: normal bowel sounds Skin: General skin exam: normal color Neuro: General: patient oriented x3 Extrem: General: normal to inspection Psych: Appearance: grossly normal Affect: normal affect Attitude: cooperative
--- NOTE | 2022-01-13 15:20 | PC.NURSE ---
Pt in bed sleeping on her side.
--- NOTE | 2022-01-13 18:49 | PC.NURSE ---
Pt called from the pharmacy with problems filling her prescriptions. Spoke with pharmacist about what her insurance would cover and called Dr. Lemos. Dr. Lemos changed meds to Procardia 60 XL po daily to start in am. Pt to take a Procardia 30 XL tonight at 1999 from her prescription she has at home. New prescriptions electronically sent for the Procardia 60 XL daily and Clindamycin 300mg q6 and Clindamycin 150 mg q6 prescriptions. Called pt back to confirm how she is to take her meds. Pt verbalizes understanding.
== END 2022-01-13 17:40 | disposition home or self-care (01) ==
LOC: ANHOBPP 01-13 12:21 → ANHOBOP 01-14 09:36 → ANHLDR 01-15 09:26 → ANHOBOP 01-15 09:27 → ANHLDR 01-15 09:28
PROVIDERS: Admitting Provider Obstetrics & Gynecology; Visit Provider Obstetrics & Gynecology
DX: O11.5 Pre-existing hypertension with pre-eclampsia, complicating the puerperium (principal); O86.00 Infection of obstetric surgical wound, unspecified; O24.435 Gestational diabetes mellitus in puerperium, controlled by oral hypoglycemic drugs; E66.01 Morbid (severe) obesity due to excess calories; Z98.51 Tubal ligation status
CPT/HCPCS: 36415; 80053; 84550; 85025; 85027; 96365; 96366; 96372; 96375; 99199; A9270; G0378; G0379; J1650; J3475; J7120

== ENCOUNTER 2024-02-26 22:43 | Observation (INO) | payer OTHER, SELFPAY ==
[2024-02-26 22:45] VITALS: BP 150/83; PULSE 116; RESP 18; TEMP 36.8; O2SAT 98
--- NOTE | 2024-02-26 23:15 | ED.ABDPAIN ---
HPI - Abdominal Pain General Chief Complaint: Abdominal Pain Stated Complaint: maybe appy? Time Seen by Provider: 02/26/24 23:03 Source: patient Mode of arrival: ambulatory Limitations: no limitations History of Present Illness HPI narrative: 34-year-old female presenting for abdominal pain. It is right lower quadrant. She has had some associated nausea and few episodes of vomiting today. Started after drinking alcohol last night at a wedding. She was actually at an outside facility and had CT imaging and blood work and was told she had an appendicitis and that she needed to be admitted there and potentially have appendectomy but she refused and left against medical advice because she did not want to be ?cut on?at the hospital and came here. Related Data Allergies Allergy/AdvReac Type Severity Reaction Status Date / Time Sulfa (Sulfonamide AdvReac Hives Verified 02/26/24 22:56 Antibiotics) Review of Systems Review of Systems: All systems reviewed & are unremarkable except as noted in HPI and below PMFSH Past Medical History Medical History Anxiety Diabetes Hypertension affecting Morbid obesity Surgical History Surgical History Delivery by section (09/06/11) primary c/s HTN distress Delivery by section (12/21/17) rpt c/s No pertinent past surgical history Family History Family History Mother Hypertension Cerebrovascular accident Diabetes mellitus Mental disorder Sibling Diabetes mellitus Grandparent Diabetes mellitus maternal grand mother Social History Social History Smoking status: Never smoker Second hand tobacco smoke exposure: Yes Alcohol intake: never Substance use: never Substance use type: does not use Occupation/Education: occupation 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 Tachycardic Head: Atraumatic, no deformities. Eyes: Pupils equal, round, and reactive to light. Neck: Supple, no tracheal deviation, no JVD. ENMT: Mucous membranes moist Cardiovascular: S1, S2 auscultated. No murmurs, rubs, or gallops. No S3/S4. Normal Distal pulses. No peripheral edema. Respiratory: Lung sounds equal. No wheezes, rales, or rhonchi. Gastrointestinal: Abdomen was soft, obese, tender in the right lower quadrant. Non-distended. No rebound or guarding. Genitourinary: Deferred Musculoskeletal: Normal muscle tone and bulk. No obvious deformities or tenderness over extremities. Skin: No rashes. Neurological: Strength 5/5 in extremities. Cranial nerves I-XII grossly intact. Distal sensation intact. Mental Status: Awake, alert and oriented x3. Follows commands Course Vital Signs Vital signs: Vital Signs Temperature 36.8 C 02/26/24 22:45 Pulse Rate 116 H 02/26/24 22:45 Respiratory Rate 18 02/26/24 22:45 Blood Pressure 150/83 H 02/26/24 22:45 Pulse Oximetry 98 02/26/24 22:45 Oxygen Delivery Room Air 02/26/24 22:45 Temperature 36.8 C 02/26/24 22:45 Pulse Rate 116 H 02/26/24 22:45 Respiratory Rate 18 02/26/24 22:45 Blood Pressure 150/83 H 02/26/24 22:45 Pulse Oximetry 98 02/26/24 22:45 Oxygen Delivery Room Air 02/26/24 22:45 MDM - Abdominal Pain MDM Narrative Medical decision making narrative: 34-year-old female presenting from outside hospital after leaving against medical advice after being supposedly diagnosed with appendicitis presenting for right lower quadrant abdominal pain, nausea, vomiting. On exam she is generally
[2024-02-26] MEDS: SODIUM CHLORIDE 0.9% IV 1,000 ML 999 ML IV CONT (23:47)
[2024-02-26 23:48] LABS: Basophils Percent Auto 0.4 % (0.2-1.2); Eosinophils Absolute Auto 0.1 K/mm3 (0-0.3); Hematocrit 40.2 % (37.0-47.0); Hemoglobin 12.8 g/dL (12.0-15.0); Immature Granulocyte Absolute 0.01 K/mm3 (0.00-0.031); Immature Granulocyte Percent A 0.1 % (0-0.5); Lymphocytes Absolute Auto 2.32 K/mm3 (0.9-3.2); Lymphocytes Percent Auto 32.5 % (18.3-44.2); Mean Corpuscular HGB Conc 31.8 g/dl (32-36); Mean Corpuscular Hemoglobin 26.3 pg (26-34); Mean Corpuscular Volume 82.5 fl (80-100); Monocytes Absolute Auto 0.4 K/mm3 (0.1-0.6); Monocytes Percent Auto 5.6 % (2.6-8.5); Neutrophils Absolute Auto 4.2 K/mm3 (1.3-6.7); Neutrophils Percent Auto 59.4 % (45.5-73.1); Platelet Count Result 328 k/mm3 (150-375); Red Blood Count 4.87 M/mm3 (4.2-5.4); Red Cell Distribution Width 15.3 % (11.5-14.5); White Blood Count 7.1 K/mm3 (4.5-10.0)
--- NOTE | 2024-02-26 23:48 | PC.NURSE ---
Pt is a difficult stick. 3 RNs attempted lab draw for BC and lactic acid, no success. Phlebotomy called at this time.
[2024-02-26 23:54] LABS: Add Urine Microscopic? NO; Appearance Urine Clear (Clear); Bilirubin Urine Negative (Negative); Blood Urine Negative (Negative); Color Urine Yellow (Yellow); Glucose Urine UA Negative (Negative); Ketones Urine Negative (Negative); Leukocyte Esterase Ur Negative LEU/UL (Negative); Nitrate Urine Negative (Negative); Protein Urine Negative (Negative); Specific Grav Ur 1.042 (1.001-1.035); Urobilinogen Urine 0.2 mg/dL (<2.0)
[2024-02-26 23:57] LABS: Pregnancy On Board Control Positive; Urine Pregnancy Test Negative
[2024-02-27] VITALS (12 sets, daily range): BP systolic 121–142; BP diastolic 72–92; PULSE 66–88; RESP 12–25; TEMP 36.3–37.4; O2SAT 90–100; BMI 48.3
[2024-02-27 00:03] LABS: Alanine Aminotransferase 27 U/L (6-35); Albumin Level 4.6 g/dL (3.5-5.1); Alkaline Phosphatase 69 U/L (38-126); Anion Gap 12 mmol/L (4-12); Aspartate Amino Transferase 27 U/L (14-36); Bilirubin,Total 0.8 mg/dL (0.2-1.3); Blood Urea Nitrogen 9 mg/dL (7-17); Calcium 9.2 mg/dL (8.4-10.2); Carbon Dioxide 20 mmol/L (22-30); Chloride 106 mmol/L (98-107); Estimated CRCL calculation 198 ml/min; Estimated Glomerular Filt Rate > 60; Glucose 105 mg/dL (65-110); Potassium 3.5 mmol/L (3.4-5.0); Sodium 138 mmol/L (137-145)
--- NOTE | 2024-02-27 00:06 | PC.NURSE ---
Phlebotomy at bedside
[2024-02-27] MEDS: MORPHINE SULFATE (*CRX) 4 MG/ML INJ IV PUSH ×2 (00:34→08:08)
[2024-02-27] MEDS: PIPERACILLN/TAZ 3.375GM/NS50ML 3.375 GM/50 ML BAG IVPB ×2 (00:35→10:40)
[2024-02-27] MEDS: LACTATED RINGERS 1,000 ML 125 ML IV CONT (01:41)
[2024-02-27 08:20] LABS: Lactic Acid Reflex 0.9 mmol/L (0.7-2.0)
--- NOTE | 2024-02-27 08:30 | PC.NURSE ---
To OR per hospital bed.
[2024-02-27] MEDS: LACTATED RINGERS 1,000 ML 30 ML IV CONT ×2 (09:00→12:01)
[2024-02-27 09:18] LABS: Glucose Point of Care 103 mg/dl (65-105)
--- NOTE | 2024-02-27 09:19 | PM.IMHP ---
H&P: HPI History of Present Illness Date/Time: 02/27/24 09:19 Chief Complaint: RLQ abdominal pain Narrative: This is a 34-year-old woman with a history of borderline diabetes, hypertension, and anxiety/depression, who presented to the ER last night after leaving AMA from [place] yesterday. She reports two nights ago she was at a wedding and was drinking alcohol and smoked marijuana. That night, she developed vomiting and though it may be related to the drinking. She also developed RLQ abdominal pain. The pain was aggravated with bending and movement. She went to [facility] ER yesterday afternoon for evaluation due to the unrelenting abdominal pain. Per the paper chart, labs showed a normal white blood cell count. She had a slightly low potassium at 3.1. CT scan fo the abdomen and pelvis showed dilated appendix measuring 1.2 cm with moderate periappendiceal inflammatory change, c/w acute appendicitis. She was reportedly given antibiotics and decided to leave [place]. She reports this was because she did not want to be treated at [facility]. She then came to our ER last night for further treatment. Labs were repeated and unremarkable. She was admitted and given one dose of IV Zosyn and admitted for surgical evaluation. Patient now seen and still having RLQ abdominal pain. Only previous abdominal surgery is a delivery and a tubal ligation during her delivery. Review of Systems Review of Systems: All systems reviewed & are unremarkable except as noted in HPI and below PMFSH Past Medical History Medical History (Updated 02/27/24 @ 09:29 by ADIN Vines) Anxiety Diabetes Hypertension affecting Morbid obesity Surgical History Surgical History Delivery by section (09/06/11) primary c/s HTN distress Delivery by section (12/21/17) rpt c/s History of tubal ligation No pertinent past surgical history Family History Family History Mother Hypertension Cerebrovascular accident Diabetes mellitus Mental disorder Sibling Diabetes mellitus Grandparent Diabetes mellitus maternal grand mother Social History Social History Smoking status: Never smoker Second hand tobacco smoke exposure: Yes Alcohol intake: current Drinks per week: 1 Substance use: current Substance use type: marijuana Do You Feel Safe in your Home?: Yes Lack of Transportation: No Lack of Food: Never True Current Housing: I Have Housing Concerned About Future Housing: No Difficulty Paying Gas/Electric Bills: No Difficulty Paying for Meds: No Currently Unemployed: No Education: Trade/Vocational Certificate Difficulty w/ Childcare or Family Care: No Occupation/Education: occupation 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 Gender identity (if verbalized by the patient): Female Sexual Orientation (if Verbalized by the Patient): Straight or Heterosexual Spiritual care concerns: No Meds Home Medications and Allergies Home Medications Medication Instructions Recorded Confirmed Type nifedipine 60 mg tablet,extended 60 mg PO DAILY 60 days #60 tabs 01/13/22 02/27/24 Rx release 24 hr (Procardia XL) apple cider vinegar 300 mg tablet 300 mg PO DAILY 02/27/24 02/27/24 History dulaglutide 0.75 mg/0.5 mL 0.75 mg subcut WEEKLY 02/27/24 02/27/24 History subcutaneous pen injector (Trulicity) hydrochlorothiazide 25 mg tablet 25 mg PO DAILY 02/27/24 02/27/24 History sertraline 25 mg tablet 25 mg PO DAILY 02/27/24 02/27/24 History Allergies Allergy/AdvReac Type Severity Reaction Status Date / Time Sulfa (Sulfonamide AdvReac Hives Verified 02/27/24 09:10 Antibiotics) Vital Signs Vital Signs - 24 hr 02/26/24 22:45 02/27/24 00:45 02/27/24 01:46 Temperature 98.3 F 97.4 F L Pulse Rat
--- NOTE | 2024-02-27 09:25 | WPDANESEPPF ---
Anes - Initial Pre Proc Eval Procedure: Operation Date: 02/27/24 10:00 Proposed Procedures p Laparoscopic Appendectomy - Ambika Mcleod MD Date/Time: 02/27/24 09:25 Surgeon: Ambika Mcleod MD Pre Op Diagnosis: Appendicitis Patient Data Age: 34 Gender: F Height: 1.73 m Weight: 144.2 kg Last Vital Signs Temp 98.4 F 02/27/24 09:04 Pulse 88 02/27/24 09:04 Resp 14 02/27/24 09:04 BP 142/90 H 02/27/24 09:04 Pulse Ox 98 02/27/24 09:04 O2 Del Method Room Air 02/27/24 09:04 Allergies Allergy/AdvReac Type Severity Reaction Status Date / Time Sulfa (Sulfonamide AdvReac Hives Verified 02/27/24 09:10 Antibiotics) Home Medications Medication Instructions Recorded Confirmed Type nifedipine 60 mg tablet,extended 60 mg PO DAILY 60 days #60 tabs 01/13/22 02/27/24 Rx release 24 hr (Procardia XL) apple cider vinegar 300 mg tablet 300 mg PO DAILY 02/27/24 02/27/24 History dulaglutide 0.75 mg/0.5 mL 0.75 mg subcut WEEKLY 02/27/24 02/27/24 History subcutaneous pen injector (Trulicity) hydrochlorothiazide 25 mg tablet 25 mg PO DAILY 02/27/24 02/27/24 History sertraline 25 mg tablet 25 mg PO DAILY 02/27/24 02/27/24 History Laboratory Tests 02/26/24 02/27/24 02/27/24 23:41 07:37 09:15 WBC 7.1 K/mm3 (4.5-10.0) RBC 4.87 M/mm3 (4.2-5.4) Hgb 12.8 g/dL (12.0-15.0) Hct 40.2 % (37.0-47.0) MCV 82.5 fl (80-100) MCH 26.3 pg (26-34) MCHC 31.8 L g/dl (32-36) RDW 15.3 H % (11.5-14.5) Plt Count 328 k/mm3 (150-375) MPV 10.0 fl (7.4-10.4) Immature Gran % (Auto) 0.1 % (0-0.5) Neut % (Auto) 59.4 % (45.5-73.1) Lymph % (Auto) 32.5 % (18.3-44.2) [place] % (Auto) 5.6 % (2.6-8.5) Eos % (Auto) 2.0 % (0-4.4) Baso % (Auto) 0.4 % (0.2-1.2) Lymph # (Auto) 2.32 K/mm3 (0.9-3.2) [place] # (Auto) 0.4 K/mm3 (0.1-0.6) Eos # (Auto) 0.1 K/mm3 (0-0.3) Baso # (Auto) 0.0 K/mm3 (0.0-0.1) Abs Immat Gran (auto) 0.01 K/mm3 (0.00-0.031) Absolute Neuts (auto) 4.2 K/mm3 (1.3-6.7) Absolute Nucleated RBC 0.000 K/mm3 (0.0-0.012) Nucleated RBC % 0.0 % (0.0-0.2) Sodium 138 mmol/L (137-145) Potassium 3.5 mmol/L (3.4-5.0) Chloride 106 mmol/L (98-107) Carbon Dioxide 20 L mmol/L (22-30) Anion Gap 12 mmol/L (4-12) BUN 9 mg/dL (7-17) Creatinine 0.50 L mg/dL (0.7-1.0) Estim Creat Clear Calc 198 ml/min Estimated GFR > 60 (59 - ) Glucose 105 mg/dL (65-110) POC Capillary Glucose 103 mg/dl (65-105) Lactic Acid Pending 0.9 mmol/L (0.7-2.0) Calcium 9.2 mg/dL (8.4-10.2) Total Bilirubin 0.8 mg/dL (0.2-1.3) AST 27 U/L (14-36) ALT 27 U/L (6-35) Alkaline Phosphatase 69 U/L (38-126) Total Protein 8.0 g/dL (6.3-8.2) Albumin 4.6 g/dL (3.5-5.1) Urine Color Yellow (Yellow) Urine Appearance Clear (Clear) Urine pH 6.0 (5.0-9.0) Ur Specific [place] 1.042 H (1.001-1.035) Urine Protein Negative mg/dL (Negative) Urine Glucose (UA) Negative mg/dL (Negative) Urine Ketones Negative mg/dL (Negative) Ur Blood (Man) Negative (Negative) Urine Nitrate Negative (Negative) Urine Bilirubin Negative (Negative) Urine Urobilinogen 0.2 mg/dL (<2.0) Leukocyte Esterase Rfl Negative VASQUEZ/UL (Negative) Urine Test Negative Patient hx anesthesia problems: none Family hx anesthesia problems: none Results Review: All pre-operative results and documents have been reviewed as part of the pre-operative e
--- NOTE | 2024-02-27 09:48 | WPDHPUPDATE1 ---
History and Physical Update Update Date/Time: 02/27/24 09:48 History and Physical has been reviewed, including an updated exam of the patient. There are NO changes in the patient's condition. Risks, benefits, and alternatives have been discussed and questions answered. Patient agrees to proceed with procedure.
[2024-02-27] MEDS: BUPIVACAINE/EPINEPHRINE 0.5% 30 ML VIAL INFILTRATE (11:27)
--- NOTE | 2024-02-27 11:54 | W.PM.PROC2 ---
Procedure Note - Detailed Date of Procedure 02/27/24 Pre-op Diagnosis Appendicitis Post-op Diagnosis Same Procedure Performed laparoscopic appendectomy Surgeon Ambika Mcleod MD Anesthesia General Indications 34-year-old female presenting to the hospital with right lower quadrant abdominal pain. Workup, including imaging, was significant for acute appendicitis. Findings acute appendicitis no evidence of perforation Description of Procedure The patient was taken to the operating room and placed in the supine position. After adequate induction of general anesthesia, the patient was prepped and draped in the normal sterile fashion. A time-out was then done to verify the patient's identity, as well as the procedure being performed. I began by making a 5 mm incision in the infraumbilical region, through this a Veress needle was placed in the peritoneal cavity. CO2 gas was then insufflated and after adequate pneumoperitoneum was achieved the Veress needle was removed. Then placed a 5 mm Optiview trocar under direct visualization into the peritoneal cavity. I then insufflated through this trocar site and the endoscope was placed into the trocar. Under direct visualization, placed a further 5 mm suprapubic port as well as an additional 12 mm port in the left lower abdomen. At this point identified the cecum, I retracted the cecum both medially and superiorly allowing me to expose the appendix. The appendix was noted to be very dilated and inflamed. The appendix was noted to be very adherent to the right lateral sidewall as well as the ileum. I was able to bluntly dissect the appendix from these adhesions. I then was able to locate the base of the appendix with the cecum. I created a window with the [place] dissector between the appendix itself and the mesoappendix. I then transected the mesoappendix with a white vascular staple load x2. The Endo-RADHA was then reloaded with a blue staple load and I transected the base of the appendix. Once the specimen was completely detached, an endo-pouch was placed into the 12 mm port site and the specimen was removed through the endo-pouch. The appendiceal specimen will be sent to pathology for further review. I then copiously irrigated the right lower quadrant. Hemostasis was noted at both staple lines no other pathology was seen in this area. I then moved the camera to the suprapubic port to check our its port of entry. No iatrogenic injury or other pathology was noted in the upper abdomen. At this point, the abdomen was desufflated and all ports were removed. The fascia of the 12 mm port site was closed an 0 Vicryl [id number] suture. All port sites were closed with 4 Monocryl subcuticular suture. Dermabond was placed on all wounds. The patient tolerated the procedure well and was extubated in the operating room postop. She will be sent to the recovery room in stable condition. Estimated Blood Loss 10 Drains No Packing No Pathology Yes Complications No immediate complications Condition Stable Disposition PACU [facility] Billing Surgery - Charge Forward: Surgery Billing
[2024-02-27 12:11] LABS: Glucose Point of Care 137 mg/dl (65-105)
[2024-02-27] MEDS: ONDANSETRON INJ 4 MG/2 ML VIAL IV PUSH (12:22)
[2024-02-27] MEDS: SCOPOLAMINE 1 MG PATCH 1 PATCH TRANSDERM (12:28)
[2024-02-27] MEDS: diphenhydrAMINE HCl INJ 50 MG/ML VIAL 25 MG IV PUSH (12:28)
--- NOTE | 2024-02-27 13:00 | PC.NURSE ---
Returned to room from OR per hospital bed.
[2024-02-27] MEDS: hydroCHLOROthiazide 25 MG TABLET PO (13:08)
[2024-02-27] MEDS: SERTRALINE HCL 25 MG TABLET PO (13:08)
[2024-02-27] MEDS: NIFEdipine 30 MG TAB.ER.24 60 MG PO (13:08)
--- NOTE | 2024-02-28 13:55 | PM.DS ---
DS: Admitting Diagnosis Discharge Date 02/27/24 Admitting Diagnosis acute appendicitis DS: Discharge Diagnosis Discharge Diagnosis (1) Acute appendicitis: Code(s): K35.80 - Unspecified acute appendicitis Status: Acute Assessment and Plan: doing well, routine postop care, home c po analgesia, await path, f/u 2 wks (2) Morbid obesity: Code(s): E66.01 - Morbid (severe) obesity due to excess calories Status: Chronic Assessment and Plan: lifestyle and dietary modifications (3) Diabetes: Code(s): E11.9 - Type 2 diabetes mellitus without complications Status: Chronic Assessment and Plan: stable, cont current meds (4) Hypertension: Code(s): I10 - Essential (primary) hypertension Status: Acute Assessment and Plan: stable, cont current meds DS: Summary Hospital Course Reason for hospitalization: acute appendicitis Hospital Course: Pt is a 34 y/o F presenting to the hospital from OSH c acute appendicitis. Pt was admitted to the surgical service and started on IV abx. Upon evaluation, decision was made for urgent appendectomy. Pt taken to OR and lap appy performed, please see full operative report for details. Postop, pt was transferred back to surgical floor. Pt did well and was able to shy diet and ambulate s issue. She will be dc'd home c po analgesia and f/u 2 wks. Status at Discharge Functional status at discharge: independent ambulation Overall status at discharge: patient is progressing back to baseline Time Spent with Patient Time attestation: Total time spent providing and/or coordinating discharge services: Time spent: Less than 30 minutes Exam Const: General: cooperative, comfortable and no acute distress Resp: Auscultation: clear to auscultation bilaterally Cardio: Rate: regular rate Rhythm: regular rhythm GI: Inspection: normal to inspection and distended GI Palp: Yes abdominal tenderness, Yes Soft to palpation and Yes Tenderness to palpation present (GI) Neuro: General: patient oriented x3 Extrem: General: normal to inspection and full ROM DS: Data Data Completed and Pending Completed studies during hospitalization: Pending at discharge 02/27/24 11:43 Surgical [PTH] Routine Labs on day of discharge: Labs from last 24 hours 02/26/24 23:41 Lactic Acid Cancelled Preliminary micro results at discharge 02/27/24 00:15 Blood Culture - Preliminary Blood 02/27/24 00:15 Blood Culture - Preliminary Blood Discharge Plan Discharge Attending physician on discharge: Ambika Mcleod Consulting providers: Zhanna Black; Ismael Watt Discharging Clinician: Ambika Mcleod Anticipated Discharge Date/Time: 02/27/24 16:00 Patient Disposition: Home, Self-Care Activity: may shower and as tolerated Diet: as tolerated Wound Care Instructions: incision open to air Discharge Instructions: DISCHARGE INSTRUCTION SHEET FOR HERNIA, GALLBLADDER AND APPENDIX SURGERIES DR. MCLEOD PATIENT TO TAKE HOME 1. May shower in 24 hours, no soaking in bath x 2weeks. 2. Call office for: Wound increasingly painful or bleeding Vomiting Fever of greater than 101 degrees 3. If no bowel movement for three days, take 1 oz. (30 ml) Milk of Magnesia or MiraLax 17g 1 to 2 times daily. 4. No heavy lifting > 10-15 pounds x 6 weeks for hernia repairs and 2 weeks for laparoscopic cholecystectomy or appendectomy. 5. No driving for 3 days or while taking narcotic pain medications. 6. Ice to surgical site for 48 hours (30 min on, then 30 min off). 7. Up walking 10-30 minutes three times per day. 8. Resume previous home medications. 9. Follow-up 10-14 days in office for wound check or as previously scheduled. ([phone]) 10. Oral pain medications prescription to be sent to pharmacy. Take Tylenol 500mg every 6 hours and Ibuprofe
== END 2024-02-27 17:49 | disposition home or self-care (01) ==
LOC: ANHED 02-27 00:28 → ANH3MEDSUR 02-27 01:10
PROVIDERS: Admitting Provider Surgery; Emergency Provider Emergency Medicine; PCP Physician Assistant Medical; Visit Provider Surgery
PROC: 0DTJ4ZZ Resection of Appendix, Percutaneous Endoscopic Approach (ICD-10-PCS; CPT 44970; principal; 2024-02-27 10:00)
DX: K35.80 Unspecified acute appendicitis (principal); E11.9 Type 2 diabetes mellitus without complications; F41.9 Anxiety disorder, unspecified; I10 Essential (primary) hypertension; F32.A Depression, unspecified; F12.90 Cannabis use, unspecified, uncomplicated; Z79.85 Long-term (current) use of injectable non-insulin antidiabetic drugs; E66.01 Morbid (severe) obesity due to excess calories; Z68.42 Body mass index [BMI] 45.0-49.9, adult
CPT/HCPCS: 44970; 36415; 80053; 81003; 81025; 82948; 83605; 85025; 87040; 88304; 99285; A9270; G0378; G0379; J0330; J1100; J1200; J2250; J2270; J2405; J2543; J2704; J3010; J7030; J7120

== ENCOUNTER 2025-07-21 17:03 | Emergency (ER) | payer OTHER, SELFPAY ==
--- NOTE | ~2025-07-21 | XR_ITS ---
EXAMINATION: XR chest 2V, 07/21/2025 17:30 CDT HISTORY: CP AND SOB COMPARISON: No comparisons available. Technique: 2 views obtained. Findings: The lungs are clear, no effusion. No pneumothorax. Heart is normal size. Mediastinal and hilar contours are within normal limits. Bony thorax no acute abnormality. Impression: No acute cardiopulmonary abnormality. Reviewed, dictated and finalized at location A. Impression: No acute cardiopulmonary abnormality.
--- NOTE | ~2025-07-21 | CT_ITS ---
EXAMINATION: CTA chest PE protocol, 07/21/2025 18:35 CDT HISTORY: CP dimer >1 COMPARISON: No comparisons available. TECHNIQUE: CTA examination is obtained with contrast CTA examination technique is performed with arterial phase of contrast-enhancement. 3-D reconstruction with thin MIP axial and MPR coronal imaging is provided Isovue 300, 92cc injected IV. One or more of the following dose reduction techniques were used: automated exposure control, adjustment of the mA and/or kV according to patient size, use of iterative reconstruction technique. FINDINGS: No significant coronary calcification is present ([id number]) LUNGS: No tracheomalacia. No bronchiectasis. Minimal emphysematous changes. No significant pulmonary fibrotic changes. No contusion or pneumothorax. Motion artifact limits evaluation of the lung parenchyma. HEART AND PERICARDIUM: Mild cardiomegaly. AORTA: Normal caliber aorta.. PULMONARY ARTERIES: No pulmonary embolism ADENOPATHY/MEDIASTINUM: None. LIMITED VIEWS OF THE ABDOMEN: Cholelithiasis. OSSEOUS STRUCTURES: No sclerotic or lytic lesions. No acute rib fractures. OVERLYING SOFT TISSUES: Unremarkable. THYROID: The thyroid is unremarkable. IMPRESSION: 1. Negative for pulmonary embolism. No acute process identified Reviewed, dictated and finalized at location A.
--- NOTE | 2025-07-21 17:04 | ECG_ITS ---
Test Date: 2025-07-21 17:09:03 Measurements Intervals [place] Rate: 137 P: 0 PA: 0 QRS: 6 QRSD: 105 T: 52 QT: 317 QTc: 480 Interpretive Statements SINUS TACHYCARDIA NONSPECIFIC T-WAVE ABNORMALITY ABNORMAL RHYTHM ECG No previous ECG available for comparison Electronically Signed On 07-21-2025 18:52:10 CDT by Ady Bruno M.D.
[2025-07-21 17:18] VITALS: BP 186/104; PULSE 139; RESP 19; TEMP 37.1; O2SAT 100
[2025-07-21 17:27] LABS: Hematocrit 39.5 % (37.0-47.0); Hemoglobin 12.8 g/dL (12.0-15.0); Immature Granulocyte Percent A 0.3 % (0-0.5); Lymphocytes Absolute Auto 2.49 K/mm3 (0.9-3.2); Mean Corpuscular HGB Conc 32.4 g/dl (32-36); Mean Corpuscular Hemoglobin 26.1 pg (26-34); Mean Corpuscular Volume 80.6 fl (80-100); Nucleated Red Blood Cells Absolute Auto 0.000 K/mm3 (0.0-0.012); Nucleated Red Blood Cells Perc 0.0 % (0.0-0.2); Platelet Count Result 376 k/mm3 (150-375); Red Blood Count 4.90 M/mm3 (4.2-5.4); White Blood Count 7.7 K/mm3 (4.5-10.0)
[2025-07-21 17:39] LABS: INR 1.1; Prothrombin Time 13.8 Seconds (11.1-14.7)
[2025-07-21 17:40] LABS: Alanine Aminotransferase 33 U/L (6-35); Albumin Level 4.4 g/dL (3.5-5.1); Alkaline Phosphatase 79 U/L (38-126); Anion Gap 10 mmol/L (4-12); Aspartate Amino Transferase 31 U/L (14-36); Bilirubin,Total 0.4 mg/dL (0.2-1.3); Blood Urea Nitrogen 12 mg/dL (7-17); Calcium 9.2 mg/dL (8.4-10.2); Carbon Dioxide 24 mmol/L (22-30); Chloride 101 mmol/L (98-107); Estimated CRCL calculation 131 ml/min; Estimated Glomerular Filt Rate > 60; Glucose 137 mg/dL (65-110); Lipase 63 U/L (23-300); Potassium 3.2 mmol/L (3.4-5.0); Sodium 135 mmol/L (137-145); Total Protein 8.3 g/dL (6.3-8.2)
[2025-07-21 17:41] LABS: Partial Thromboplastin Time 30.5 Seconds (22.3-36.8)
[2025-07-21 17:50] LABS: Troponin I < 0.012 ng/mL (0.000-0.034)
[2025-07-21] MEDS: SODIUM CHLORIDE 0.9% IV 1,000 ML 999 ML IV CONT (18:14)
[2025-07-21 18:15] VITALS: BP 152/98; PULSE 120; RESP 25; O2SAT 100
[2025-07-21] MEDS: ASPIRIN 81 MG CHEWABLE TABLET 324 MG PO (18:15)
--- NOTE | 2025-07-21 18:17 | ED_ITS ---
HPI - Chest Pain General Chief Complaint: Chest Pain Stated Complaint: CP, heart racing Time Seen by Provider: 07/21/25 17:11 Source: patient and other (partner) Mode of arrival: ambulatory Limitations: no limitations History of Present Illness HPI narrative: Patient presents with concern for chest pain that started 1 hour prior to arrival. Patient had noticed lower extremity edema > 1 month but thought left leg was larger. Started to become anxious and then developed chest pain. History of anxiety and thinks the episode, which has since resolved, was a panic attack. No shortness of breath, deep breaths in fact helped. Pain before has been sharp and intermittent. 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 No cough. [place] hot, temp 99 last night. Otherwise no fevers or chills. Has a PCP (Rohit Philip). Has never seen a cigar wrapper tender automatic. No underlying cardiac issues. Pain was sharp. Denies drugs. No recent travel or hormones/ control. No previous DVT. Had an US to evaluate for one somewhat recently. Cardiac risk factors HTN: Yes HLD: No DM:No ; prediabetes for which she is on Trulicity Obese: Yes Smoker: No (but second hand smoke exposure) Personal history VA/TIA/CVA: No Fam Hx VA in first degree relative <65yo: No Related Data Home Medications ?Medication ?Instructions ?Recorded ?Confirmed ?Last Taken ?Type apple cider vinegar 300 mg tablet 300 mg PO DAILY 02/1203/14/24 Unknown History hydrochlorothiazide 25 mg tablet 25 mg PO DAILY 03/14/24 Unknown History sertraline 25 mg tablet 25 mg PO DAILY 02/27/24 05/12/07 Unknown History dulaglutide 1.5 mg/0.5 mL 1.5 mg subcut WEEKLY 4 03/14/24 Unknown History subcutaneous pen injector (Trulicity) Allergies Allergy/AdvReac Type Severity Reaction Status Date / Time Sulfa (Sulfonamide AdvReac Hives Verified 03/14/24 10:48 Antibiotics) [facility] Past Medical History Medical History (Updated 07/22/25 @ 00:00 by Keegan Bryan) Morbid obesity Hypertension affecting Anxiety Diabetes Surgical History Surgical History (Updated 03/14/24 @ 11:04 by Shweta Gaxiola [facility]) History of laparoscopic appendectomy History of tubal ligation Delivery by section (12/21/17) rpt c/s Delivery by section (09/06/11) primary c/s HTN distress No pertinent past surgical history Family History Family History Mother Hypertension Cerebrovascular accident Diabetes mellitus Mental disorder Sibling Diabetes mellitus Grandparent Diabetes mellitus maternal grand mother Social History Social History Smoking status: Never smoker Second hand tobacco smoke exposure: Yes Alcohol intake: current Drinks per week: 1 Substance use: current Substance use type: marijuana Do You Feel Safe in your Home?: Yes Lack of Transportation: No Lack of Food: Never True Current Housing: I Have Housing Concerned About Future Housing: No Difficulty Paying Gas/Electric Bills: No Difficulty Paying for Meds: No Currently Unemployed: No Education: Trade/Vocational Certificate Difficulty w/ Childcare or Family Care: No Occupation/Education: occupation 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 HEAD: Normocephalic, atraumatic. EYES: Non injected, non icteric ENT: Nares clear, no rhinorrhea or epistaxis. Gross auditory acuity intact. NECK: Supple. No meningismus. CHEST: Speaking in full sentences. No respiratory distress. Non labored. HEART: Tachycardic rate and rhythm. . ABDOMEN: Obese but Soft, nondistended. No rigidity or guarding. Not peritoneal EXTREMITIES: Normal range of motion. No lower extremity edema at bilateral tibias. SKIN: Warm, dry, no rash. NEURO: No focal deficits. Alert and oriented. Answering questions. Following commands. Normal speech without aphasia or dysarthria. PSYCH: Normal mood and affect. Course Vital Signs Vital signs: Vital Signs Temperature 98.8 F 07/21/25 17:18 Pulse Rate 139 H 07/21/25 17:18 Respiratory Rate 19 07/21/25 17:18 Blood Pressure 186/104 H 07/21/25 17:18 Pulse Oximetry 100 07/21/25 17:18 Oxygen Delivery Room Air 07/21/25 17:18 Temperature 98.8 F 07/21/25 17:18 Pulse Rate 88 07/21/25 21:39 Respiratory Rate 15 07/21/25 21:39 Blood Pressure 131/92 H 07/21/25 21:39 Pulse Oximetry 100 07/21/25 21:39 Oxygen Delivery Room Air 07/21/25 17:43 MDM - Chest Pain MDM Narrative Medical decision making narrative: Patient presents with episode of chest pain. History of anxiety, believes she might have had a panic attack. In the emergency department she is afebrile with vital signs that show an elevated heart rate at 139 beats per minute as well as hypertension at 186/104. 1 L IV fluids ordered as well as TSH and dimer. Sodium corrects to 136 (mild correction) given mild hyperglycemia which is w/o anion gap or acidosis. Mild hypokalemia. Oral repletion ordered. Magnesium normal. HEART SCORE History 2 highly suspicious 1 moderately suspicious 0 slightly suspicious History score [address] depression/elevation not due to LBBB, LVH, or digoxin [address] depression but LBBB, LVH, nonspecific repolarization changes 0 normal ECG score 0 Age 2 >/= 65 1 45-64 0 <45 Age score 0 Risk factors (HTN, hypercholesterolemia, DM, obesity with BMI >30, current smoker or cessation </=3mo), positive fam hx with parent or sibling with CVD before age 65, atherosclerotic disease (prior VA, PCI/CABG, CVA/TIA, or peripheral arterial disease) 2 >/= 3 risk factors or history of atherosclerotic dz 1 - 1-2 risk factors 0 no known risk factors Risk factor score 2 Initial Troponin 2 >3 times normal limit 1 1-3 times normal limit 0 less than or equal to normal limit Troponin score 0 Total HEART Score 2 Dimer >1; CTA PE study ordered. Repeat troponin normal. Heart rate has normalized. Blood pressure is near normal, 131/92. Patient advised to follow- up with primary care physician for further consideration of outpatient workup given her otherwise low (but not negligeble risk), though reasonable to suspect that today's incident might have been related to anxiety. Differential Diagnosis Differential diagnosis: Likely stable angina, unstable angina pectoris, atypical chest pain, st elevation myocardial infarction, chest pain, biliary colic and other (panic attack; thyroid dysfunction; PE; acute heart failure; acute viral syndrome) Lab Data Attestation: I reviewed the patient's lab results. Lab results narrative: TSH and UDS normal 07/21/25 17:22 07/21/25 17:22 Labs: Lab Results 07/21/25 07/21/25 07/21/25 Range/Units 17:21 17:22 17:49 WBC 7.7 (4.5-10.0) K/mm3 RBC 4.90 (4.2-5.4) M/mm3 Hgb 12.8 (12.0-15.0) g/dL Hct 39.5 (37.0-47.0) % MCV 80.6 (80-100) fl MCH 26.1 (26-34) pg MCHC 32.4 (32-36) g/dl RDW 15.3 H (11.5-14.5) % Plt Count 376 H (150-375) k/mm3 MPV 8.9 (7.4-10.4) fl Immature Gran % (Auto) 0.3 (0-0.5) % Neut % (Auto) 56.9 (45.5-73.1) % Lymph % (Auto) 32.3 (18.3-44.2) % [place] % (Auto) 7.8 (2.6-8.5) % Eos % (Auto) 2.2 (0-4.4) % Baso % (Auto) 0.5 (0.2-1.2) % Lymph # (Auto) 2.49 (0.9-3.2) K/mm3 [place] # (Auto) 0.6 (0.1-0.6) K/mm3 Eos # (Auto) 0.2 (0-0.3) K/mm3 Baso # (Auto) 0.0 (0.0-0.1) K/mm3 Abs Immat Gran (auto) 0.02 (0.00-0.031) K/mm3 Absolute Neuts (auto) 4.4 (1.3-6.7) K/mm3 Absolute Nucleated RBC 0.000 (0.0-0.012) K/mm3 Nucleated RBC % 0.0 (0.0-0.2) % PT 13.8 (11.1-14.7) Seconds INR 1.1 APTT 30.5 (22.3-36.8) Seconds D-Dimer 1.02 H (<0.48) ug/mL Sodium 135 L (137-145) mmol/L Potassium 3.2 L (3.4-5.0) mmol/L Chloride 101 (98-107) mmol/L Carbon Dioxide 24 (22-30) mmol/L Anion Gap 10 (4-12) mmol/L BUN 12 (7-17) mg/dL Creatinine 0.79 (0.7-1.0) mg/dL Estim Creat Clear Calc 131 ml/min Estimated GFR > 60 (59 - ) Glucose 137 H (65-110) mg/dL Calcium 9.2 (8.4-10.2) mg/dL Magnesium 2.0 Cancelled (1.6-2.3) mg/dL Total Bilirubin 0.4 (0.2-1.3) mg/dL AST 31 (14-36) U/L ALT 33 (6-35) U/L Alkaline Phosphatase 79 (38-126) U/L Troponin I < 0.012 (0.000-0.034) ng/mL Total Protein 8.3 H (6.3-8.2) g/dL Albumin 4.4 (3.5-5.1) g/dL Lipase 63 (23-300) U/L TSH 2.160 (0.465-4.680) uIU/mL Urine Test Negative Urine Opiates Screen Negative (Negative) Urine Methadone Screen Negative (Negative) Ur Barbiturates Screen Negative (Negative) Ur Phencyclidine Scrn Negative (Negative) Ur Amphetamine Screen Negative (Negative) U Benzodiazepines Scrn Negative (Negative) Urine Cocaine Screen Negative (Negative) U Cannabinoids Screen Negative (Negative) 07/21/25 Range/Units 20:51 WBC (4.5-10.0) K/mm3 RBC (4.2-5.4) M/mm3 Hgb (12.0-15.0) g/dL Hct (37.0-47.0) % MCV (80-100) fl MCH (26-34) pg MCHC (32-36) g/dl RDW (11.5-14.5) % Plt Count (150-375) k/mm3 MPV (7.4-10.4) fl Immature Gran % (Auto) (0-0.5) % Neut % (Auto) (45.5-73.1) % Lymph % (Auto) (18.3-44.2) % [place] % (Auto) (2.6-8.5) % Eos % (Auto) (0-4.4) % Baso % (Auto) (0.2-1.2) % Lymph # (Auto) (0.9-3.2) K/mm3 [place] # (Auto) (0.1-0.6) K/mm3 Eos # (Auto) (0-0.3) K/mm3 Baso # (Auto) (0.0-0.1) K/mm3 Abs Immat Gran (auto) (0.00-0.031) K/mm3 Absolute Neuts (auto) (1.3-6.7) K/mm3 Absolute Nucleated RBC (0.0-0.012) K/mm3 Nucleated RBC % (0.0-0.2) % PT (11.1-14.7) Seconds INR APTT (22.3-36.8) Seconds D-Dimer (<0.48) ug/mL Sodium (137-145) mmol/L Potassium (3.4-5.0) mmol/L Chloride (98-107) mmol/L Carbon Dioxide (22-30) mmol/L Anion Gap (4-12) mmol/L BUN (7-17) mg/dL Creatinine (0.7-1.0) mg/dL Estim Creat Clear Calc ml/min Estimated GFR (59 - ) Glucose (65-110) mg/dL Calcium (8.4-10.2) mg/dL Magnesium (1.6-2.3) mg/dL Total Bilirubin (0.2-1.3) mg/dL AST (14-36) U/L ALT (6-35) U/L Alkaline Phosphatase (38-126) U/L Troponin I < 0.012 (0.000-0.034) ng/mL Total Protein (6.3-8.2) g/dL Albumin (3.5-5.1) g/dL Lipase (23-300) U/L TSH (0.465-4.680) uIU/mL Urine Test Urine Opiates Screen (Negative) Urine Methadone Screen (Negative) Ur Barbiturates Screen (Negative) Ur Phencyclidine Scrn (Negative) Ur Amphetamine Screen (Negative) U Benzodiazepines Scrn (Negative) Urine Cocaine Screen (Negative) U Cannabinoids Screen (Negative) Imaging Data Radiologist's impression: Impressions Chest X-Ray 07/21/25 17:42 Impression: No acute cardiopulmonary abnormality. Chest CTA 07/21/25 19:42 IMPRESSION: 1. Negative for pulmonary embolism. No acute process identified ECG Data EKG #1: Attestation: I personally reviewed and interpreted this ECG as follows: ECG completion date: 07/21/25 ECG completion time: 17:09 Interpretation: Pre populated EKG suggests atrial flutter/tachycardia with rapid ventricular response however there are clearly identified P-waves that preceded all QRS complexes and QRS complexes that follow all P-waves. This is consistent with a sinus tachycardia at a rate of 137 beats minute. QRS 105. QT/QTC 370/395. Good R-wave progression across the precordial leads. No T-wave inversions. EKG #2: Attestation: I personally reviewed and interpreted this ECG as follows: ECG completion date: 07/21/25 ECG completion time: 20:38 Prior ECG tracings: available for review Interpretation: Normal sinus rhythm at a rate of 97 beats per minute. AK interval 156. QRS 106. QT/QTC 355/4 9. Good R-wave progression across the precordial leads. No T-wave inversion. Discharge Plan Discharge Clinical Impression: Chest pain, Hypokalemia, Anxiety Patient Disposition: Home Condition: Stable Instructions: Antibiotic Form, Chest Pain (DC), Hypokalemia (ED), Anxiety (ED), Panic Attack (ED) Additional Instructions: Your chest pain workup was reassuring. However, given your risk factors, I do recommend you follow-up with your primary care physician in consideration of further work up in the outpatient setting. Continue taking your medications as prescribed. Your potassium was slightly low but supplemented. Return to the emergency department with any new or worsening symptoms. Patient Language: Azeri Prescriptions: No Action Trulicity 1.5 mg/0.5 mL pen injector 1.5 mg subcut WEEKLY nifedipine [Procardia XL] 60 mg Tablet Extended Release 24 Hr 60 mg PO DAILY 60 Days Qty: 60 0RF sertraline 25 mg tablet 25 mg PO DAILY hydrochlorothiazide 25 mg tablet 25 mg PO DAILY apple cider vinegar 300 mg Tablet 300 mg PO DAILY Follow-up/Referrals: Cedrick,LEONID Rivera [Primary Care Provider, Unknown] Stand Alone Forms: Work/School Release IP Time of Disposition: 21:25
[2025-07-21 18:26] LABS: Cannabinoid Screen Urine Negative (Negative)
[2025-07-21 18:48] LABS: Thyroid Stimulating Hormone 2.160 uIU/mL (0.465-4.680)
[2025-07-21] MEDS: POTASSIUM BICARBONATE 25 MEQ TABEF 50 MEQ PO (19:01)
[2025-07-21 19:07] LABS: Pregnancy On Board Control Positive
[2025-07-21 19:21] LABS: Magnesium 2.0 mg/dL (1.6-2.3)
--- NOTE | 2025-07-21 19:54 | ECG_ITS ---
Test Date: 2025-07-21 20:38:47 Measurements Intervals [place] Rate: 97 P: 12 MI: 156 QRS: 14 QRSD: 106 T: 31 QT: 355 QTc: 451 Interpretive Statements SINUS RHYTHM Compared to ECG 07/21/2025 17:09:03 Sinus tachycardia no longer present T-wave abnormality no longer present Electronically Signed On 07-22-2025 10:30:53 CDT by Ady Bruno M.D.
[2025-07-21 21:06] VITALS: BP 131/92; PULSE 91; RESP 19; O2SAT 99
[2025-07-21 21:19] LABS: Troponin I < 0.012 ng/mL (0.000-0.034)
[2025-07-21 21:39] VITALS: BP 131/92; PULSE 88; RESP 15; O2SAT 100
== END 2025-07-21 21:40 | disposition home or self-care (01) ==
PROVIDERS: Emergency Provider Student in an Organized Health Care Education/Training Program; PCP Physician Assistant Medical
DX: R07.9 Chest pain, unspecified (principal); E87.6 Hypokalemia; F41.9 Anxiety disorder, unspecified; E11.9 Type 2 diabetes mellitus without complications; Z79.85 Long-term (current) use of injectable non-insulin antidiabetic drugs
CPT/HCPCS: 36415; 71046; 71275; 80053; 80307; 81025; 83690; 83735; 84443; 84484; 85025; 85380; 85610; 85730; 93005; 96360; 99284; A9270; J7030; Q9967